=== PATIENT | female | born 1945 | race Caucasian/White ===

== ENCOUNTER 2016-03-24 10:31 | Inpatient (IN) ==
[2016-03-24] MEDS ORDERED: FUROSEMIDE 40 MG/4 ML VIAL ONE (10:44)
[2016-03-24] MEDS ORDERED: MORPHINE 2 MG/1 ML SYRINGE IV STA (10:54)
[2016-03-24] MEDS ORDERED: NITROGLYCERIN 2% OINT 1 INCH/GM PACK TOP STA (10:54)
[2016-03-24] MEDS ORDERED: ASPIRIN 325 MG TABLET PO STA (10:54)
[2016-03-24] MEDS ORDERED: ONDANSETRON 4 MG/2 ML VIAL IV STA (10:54)
[2016-03-24] MEDS ORDERED: ALBUTEROL/IPRATROPIUM 3 ML NEB RESP TX STA (10:54)
[2016-03-24] MEDS ORDERED: FUROSEMIDE 100 MG/10 ML VIAL IV STA (10:54)
[2016-03-24] MEDS ORDERED: methylPREDNISolone SOD SUC 125 MG/2 ML VIAL IV STA (10:54)
[2016-03-24] MEDS ORDERED: NITROGLYCERIN 2% OINT 1 INCH/GM PACK TOP ONE (10:59)
[2016-03-24] MEDS ORDERED: ONDANSETRON 4 MG/2 ML VIAL ONE (10:59)
[2016-03-24] MEDS ORDERED: ASPIRIN 325 MG TABLET ONE (10:59)
[2016-03-24] MEDS ORDERED: MORPHINE 2 MG/1 ML SYRINGE ONE (10:59)
[2016-03-24] MEDS ORDERED: methylPREDNISolone SOD SUC 125 MG/2 ML VIAL ONE (11:00)
[2016-03-24 11:15] LABS: Apearance,Urine Slightly Hazy (Clear); Bacteria,Urine Few /HPF (Few); Bilirubin,Urine Negative (Negative); Blood, Urine Negative (Negative); Glucose,Urine (UA) 50 mg/dL (Negative); Hyaline Casts,Urine 1 /LPF (0-3); Ketones,Urine Negative (Negative); Mucus,Urine Occasional /LPF (Occasional); Nitrite,Urine Negative (Negative); Protein,Urine 100 MG/DL; RBC,Urine 1 /HPF (0-4); Squamous Epithelial Cell,Urine Occasional /HPF (0-10); Urine Color Yellow (Yellow); Urine Specific Gravity 1.015 (1.001-1.035); Urine Urobilinogen < 2.0 EU/DL (0.2-1.0)
[2016-03-24 11:21] LABS: Basophils % 0.5 % (0.0-0.8); Eosinophils # 0.1 10*3/uL (0.0-0.87); Eosinophils % 0.9 % (0.00-10.9); Hematocrit 41.9 VOL% (35.7-47.0); Hemoglobin 12.9 GM/DL (12.0-16.0); Immature Granulocytes % 0.9 %; Immature Granulocytes Absolute 0.07 #; Lymphocytes # 1.3 10*3/uL (1.4-4.0); Lymphocytes % 16.9 % (21.3-54.2); Mean Corpuscular HGB Conc 30.8 GM/DL (32-36); Mean Corpuscular Hemoglobin 29 PG (27-34); Mean Corpuscular Volume 92.7 FL (87-102); Mean Platelet Volume 10.4 FL (9.6-12.0); Monocytes # 0.4 10*3/uL (0.11-0.8); Monocytes % 5.1 % (1.7-12.7); Neutrophils # 5.7 10*3/uL (1.4-7.4); Neutrophils % 75.7 % (38.7-73.9); Platelet Count 195 T/CUMM (130-400); Red Blood Count 4.52 MC/CUMM (3.8-5.5); Red Cell Distribution Width 14.2 % (9.3-17.3); White Blood Count 7.6 T/CUMM (4-12)
[2016-03-24 11:32] LABS: D-Dimer 1.5 MG/L FEU; PT Patient Result 10.7 SECS
[2016-03-24 11:36] LABS: ABG Base Excess 4.1 MMOL/L (-2.5-2.5); ABG HCO3 30.7 MMOL/L (20-26); ABG Oxygen Saturation 99.4 % (95-100); ABG PCO2 54.9 MM HG (35-48); ABG PH 7.365 (7.35-7.45); ABG PO2 437.6 MM HG (80-95); ABG TCO2 32.4 MMOL/L (23-27)
[2016-03-24 11:42] LABS: Alanine Aminotransferase 65 U/L (13-56); Albumin 3.3 G/DL (3.4-5.0); Alkaline Phosphatase 71 U/L (45-117); Aspartate Amino Transferase 52 U/L (0-37); Blood Urea Nitrogen 20 MG/DL (7-18); Calcium 8.8 MG/DL (8.5-10.1); Glucose 262 MG/DL (74-106); Magnesium 1.6 MG/DL (1.8-2.4); Osmolality,Calculated 292.3 MOS/KG (273-304); Potassium 4.9 MMOL/L (3.5-5.1); Sodium 141 MMOL/L (136-145); Total Protein 7.4 G/DL (6.4-8.3); Troponin I Only < 0.015 NG/ML (0.00-0.045)
--- NOTE | 2016-03-24 11:42 | XRay Report ---
XR chest 1V portable Indication: SOB Comparison: Chest x-ray dated December 18, 2013 and rib series dated January 21, 2016 Technique: Single frontal view of the chest Findings: Mild cardiomegaly. Mild interstitial pulmonary prominence is nonspecific but may reflect interstitial pulmonary edema. Osseous and surrounding soft tissue structures appear grossly unchanged. IMPRESSION: As above. PROCEDURE INTERPRETED AT [facility] DEPARTMENT OF RADIOLOGY Final Report Signed by: Dr Pernell Leung
[2016-03-24] MEDS ORDERED: MAGNESIUM SULF RIDER 2 GM in PREMIX 1 EACH IV STA (11:45)
--- NOTE | 2016-03-24 11:49 | Emergency Department Note ---
Cuca Ramires Brittany, am scribing for, and in the presence of, Jesus Gerard MD 11:47. Rajani Ramires Charles R, MD, personally performed the services described in this documentation, ascribed by Claudine Thurman in my presence, and it is both accurate and complete . Arrival - Arrival Chief Complaint: Shortness of Breath Stated Complaint: BP, breathing problem, sick to stomach ED Nursing Triage Note: C/O SOB WITH COUGHING PINK FROTHY SPUTUM WHILE AT MRI CLINIC. NURSE CALLED AND STATED THAT PT DID NOT RECIEVE ANY CONTRAST WHILE AT CT Mode of Arrival: Wheelchair Limitations: No Limitations Source: Patient, Family Time Seen by Provider: 03/24/16 10:52 - History of Present Illness HPI Narrative: This is a 70 y/o female,who presents to the ED with c/o SOB which started minutes [employer]. She states she was being seen at the [facility] clinic for an artery blockage. Her family states pt suddenly became SOB and started to have CP. Her family states pt will not tell someone when she is having the chest pains. Her family states pt has been nauseated when this morning. Pt has had a cough with pinky sputum. Pt denies any CP at this moment in the ED. Pt has no other complaints/pain in the ED at this time. Pt has a PMHx of CHF, HTN, IDDM, and obstructive sleep apnea. Pt denies a surgical Hx. Pt has a family Medical Hx of diabetes and heart disease. Pt denies a social Hx. 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) Consistency: constant Severity: moderate Date of Last Menstrual Period: HYST Allergies/Adverse Reactions: Allergies Allergy/AdvReac Type Severity Reaction Status Date / Time No Known Allergies Allergy Unverified 03/24/16 10:41 Home Medications: Home Medications Medication Instructions Recorded Confirmed Type Albuterol Sulfate [Proair 2 puff INH QID 03/24/16 03/24/16 History Respiclick] Aspirin [Ecotrin] 81 mg PO DAILY 03/24/16 03/24/16 History Citalopram [CeleXA] 20 mg PO DAILY 03/24/16 03/24/16 History Famotidine Tab [Pepcid Tab] 20 mg PO BID 03/24/16 03/24/16 History Glimepiride [Amaryl] 4 mg PO BID W/MEALS 03/24/16 03/24/16 History Hum Insulin NPH/Reg Insulin Hm 30 unit SUBCUT QPM 03/24/16 03/24/16 History [NovoLIN 70/30] Hum Insulin NPH/Reg Insulin Hm 60 unit SUBCUT QAM 03/24/16 03/24/16 History [NovoLIN 70/30] Lisinopril 20 mg PO BID 03/24/16 03/24/16 History Meloxicam [Mobic] 7.5 mg PO DAILY 03/24/16 03/24/16 History Metoprolol Tartrate 25 mg PO BID 03/24/16 03/24/16 History Nitroglycerin Sl Tab [Nitrostat] 0.4 mg SL Q5M PRN 03/24/16 03/24/16 History Verapamil HCl [Verapamil Tab] 120 mg PO BID 03/24/16 03/24/16 History cloNIDine TAB [Catapres Tab] 0.1 mg PO ONCE PRN 03/24/16 03/24/16 History Review of System - Review of System 12 point system: reviewed and no additional remarkable complaints except as stated - Review of System Respiratory: Present: cough (+ of pinky sputum ) Cardiovascular: Present: chest pain, dyspnea on exertion. Absent: palpitations Medical,Surgical,& Family Hx - Medical History Cardio: History of: CHF, Hypertension Endocrine: History of: Diabetes Mellitus (IDDM) Respiratory: History of: Obstructive Sleep Apnea - Family History Family History: Reports;: Family Diabetes, Family Heart Disease - Social History Smoking Status: Never smoker Frequency of Alcohol Use: None Type of Drug Use: None Exam Vital Signs: Vital Signs Temperature 97.5 F L 03/24/16 10:41 Pulse Rate 113 H 03/24/16 10:41 Respiratory Rate 24 03/24/16 11:16 Blood Pressure 200/150 03/24/16 10:41 O2 Sat by Pulse Oximetry 84 L 03/24/16 10:41 - General General appearance: in distress - Head Head exam: Present: atraumatic, normocephalic, normal inspection - Eye Eye exam: Present: normal appearance, PERRL, EOMI - ENT ENT exam: Present: normal exam, normal oropharynx, mucous membranes moist - Neck Neck exam: Present: trachea midline, other (Short neck, per doctor). Absent: tenderness - Chest Chest inspection: Present: normal inspection, symmetric chest wall rise. Absent : tenderness, rash, abscess - Respiratory Respiratory exam: Present: rales (Bilateral Rales), wheezes (Bilateral wheezing) , other (Labored Breathing, D/C breath sounds ) - Cardiovascular Cardiovascular exam: Present: tachycardia - Abdominal Exam Abdominal exam: Present: soft. Absent: distention, tenderness, guarding, rebound, rigidity - Extremities Exam Extremities exam: Present: pedal edema (+2 pedal edema) - Back Exam Back exam: Present: normal inspection, full ROM. Absent: tenderness, muscle spasm, rashes - Neurological Exam Neurological exam: Present: alert, oriented X3, CN II-XII intact, reflexes normal. Absent: motor sensory deficit - Psychiatric Psychiatric exam: Present: normal affect, normal mood. Absent: agitated, anxious - Skin Skin exam: Present: warm, dry, intact, normal color. Absent: diaphoresis Course - Consultations Consultation #1: Hospitalist will admit patient Time: 13:32 Results - Labs CBC & BMP: 03/24/16 11:18 03/24/16 11:18 Lab Results: I have reviewed the patients labs Critical Care Time Critical Care Time: Yes Total Critical Care Time: 60 Disposition Clinical Impression: Congestive heart failure, Hypoxia, Acute dyspnea, Uncontrolled hypertension, JAZMINE (obstructive sleep apnea) Case discussed with: patient, patient's family Disposition: Still a Patient Condition: Guarded Time of Disposition: 13:10
--- NOTE | 2016-03-24 12:08 | EKG Report ---
Stationary ECG Study [facility] ER Test Date: 03/24/2016 10:45:24 AM Pat Name: FRANCESCO DURAN Department: Room: Gender: F Chief Informatics Officer: ROGER Diaz : 1945 Requested by: Jesus Franco Order Number: [id number] Reading MD: FANTA TRUJILLO Intervals [place] Rate: 93 P: 31 TN: 176 QRS: 57 QRSD: 154 T: 77 QT: 407 QTc: 458 Interpretive Statements SINUS RHYTHM WITH OCCASIONAL SUPRAVENTRICULAR PREMATURE COMPLEXES LEFT BUNDLE BRANCH BLOCK Electronically Signed On 03-24-16 22:40:16 MERCHANDISE DIRECTOR by FANTA TRUJILLO [email or web address]
[2016-03-24] MEDS ORDERED: MAGNESIUM SULF RIDER 50 ML IV ONE (12:41)
--- NOTE | 2016-03-24 12:58 | CT Report ---
History: Shortness of breath. Hemoptysis Date: 03/24/2016 Study: CT chest with IV contrast with pulmonary embolus technique Comparison exam: No previous Spiral CT sections were obtained through the lungs following the IV administration of 80 mL of Omnipaque 350 without immediate complication. Multiplanar reconstruction images are also evaluated. Total DLP measures 849.2 mGy*cm. There is no discrete filling defect within the pulmonary arterial tree to suggest acute pulmonary embolic disease, though evaluation of the peripheral arterial tree is limited due to the timing of IV contrast. There is no mediastinal lymphadenopathy or mediastinal mass. There is no thoracic aortic aneurysm or dissection. There is no obvious thyroid mass. There is no pericardial effusion. There is minimal left pleural effusion. There is patchy and hazy airspace disease bilaterally, more so in the perihilar regions, suggesting pulmonary edema. There is moderate thoracic spondylosis. There is no gross acute abnormality of the partially visualized upper abdomen. There is a rounded 9 mm cystic lesion in the subcutaneous tissues of the left chest just inferior medial to the left breast. There is also a similar lesion measuring 14 mm in the left upper abdominal wall. Sebaceous cyst formation is suspected, though correlation with physical exam is recommended. Impression: No evidence to suggest acute pulmonary embolic disease. There is evidence of pulmonary edema, suggesting CHF. Suspected sebaceous cyst formation left chest and left abdomen abdominal wall PROCEDURE INTERPRETED AT [facility] DEPARTMENT OF RADIOLOGY Final Report Signed by: Dr. Rosamaria Mullins
[2016-03-24] MEDS ORDERED: ONDANSETRON 4 MG/2 ML VIAL IV PRN (14:12)
[2016-03-24] MEDS ORDERED: ACETAMINOPHEN 325 MG TABLET PO PRN (14:12)
[2016-03-24] MEDS ORDERED: ALBUTEROL 2.5 MG/3 ML NEB RESP TX PRN (14:12)
[2016-03-24] MEDS ORDERED: LACTULOSE 20 GM/30 ML UDCUP PO PRN (14:12)
[2016-03-24] MEDS ORDERED: MORPHINE 2 MG/1 ML SYRINGE IV PRN (14:12)
[2016-03-24] MEDS ORDERED: GLUCAGON 1 MG VIAL IM PRN (14:36)
[2016-03-24] MEDS ORDERED: DEXTROSE 50% 25 GM/50 ML VIAL IV PRN (14:36)
--- NOTE | 2016-03-24 15:32 | Hospitalist History & Physical ---
<Eleanor Feliz N - Last Filed: 03/24/16 15:28> Assessment and Plan - Time spent with patient Time spent with patient: Greater than 30 minutes (1) Acute dyspnea Status: Acute Current Visit: Yes (2) Congestive heart failure Status: Acute Assessment and plan: Admit to ICU overnight for close monitoring Continue on IV Lasix monitor output CPAP while sleeping and at bedtime repeat ABG in the AM routine labs in AM repeat troponin and ekg in the morning ECHO cardiology consult consult Dr. Pittman for further eval of JAZMINE resume home meds as appropriate hold NSAIDS PRN meds DVT prophylaxis further plan and addendum to follow per Dr. Garibay Current Visit: Yes (3) JAZMINE (obstructive sleep apnea) Status: Acute Current Visit: Yes History of Present Illness Chief complaint: shortness of breath History of present illness: Ms. Fox is a 70 year old female who was at the MRI center this morning for an "artery blockage". She states she was laying flat while in the MRI and she fell asleep. She woke up suddenly acutely short of breath. She states she could not catch her breath and did not feel like she was moving any air. She presented to the ER in acute pulmonary edema. She was given IV Lasix, IV solumedrol, IV MG, nitro paste, and ASA. Also given duoneb and placed on 10L NRB. At the time I saw the pt, she is much improved, she is on 10L NRB and maintaining oxygenation of 100%. She is able to talk with me with only minimal conversational dyspnea. She states she feels much better now. She admits to not feeling well over the last few days and not sleeping much at all lately. She denies chest pain, headache, fever, chills, abdominal pain, n/v/d, dysuria. She has trace edema all over. She tells me that she has JAZMINE but never followed up to get a cpap. She has a PMH of CHF, HTN, DM, and JAZMINE. Pt denies a surgical Hx. Pt has a family Medical Hx of diabetes, stroke and heart disease. Pt denies a social Hx. Home Medications Medication Instructions Recorded Confirmed Type Albuterol Sulfate [Proair 2 puff INH QID 03/24/16 03/24/16 History Respiclick] Aspirin [Ecotrin] 81 mg PO DAILY 03/24/16 03/24/16 History Citalopram [CeleXA] 20 mg PO DAILY 03/24/16 03/24/16 History Famotidine Tab [Pepcid Tab] 20 mg PO BID 03/24/16 03/24/16 History Glimepiride [Amaryl] 4 mg PO BID W/MEALS 03/24/16 03/24/16 History Hum Insulin NPH/Reg Insulin Hm 30 unit SUBCUT QPM 03/24/16 03/24/16 History [NovoLIN 70/30] Hum Insulin NPH/Reg Insulin Hm 60 unit SUBCUT QAM 03/24/16 03/24/16 History [NovoLIN 70/30] Lisinopril 20 mg PO BID 03/24/16 03/24/16 History Meloxicam [Mobic] 7.5 mg PO DAILY 03/24/16 03/24/16 History Metoprolol Tartrate 25 mg PO BID 03/24/16 03/24/16 History Nitroglycerin Sl Tab [Nitrostat] 0.4 mg SL Q5M PRN 03/24/16 03/24/16 History Verapamil HCl [Verapamil Tab] 120 mg PO BID 03/24/16 03/24/16 History cloNIDine TAB [Catapres Tab] 0.1 mg PO ONCE PRN 03/24/16 03/24/16 History Allergies Allergy/AdvReac Type Severity Reaction Status Date / Time No Known Allergies Allergy Unverified 03/24/16 10:41 Medical,Surgical,& Family Hx - Medical History Cardio: History of: CHF, Hypertension Endocrine: History of: Diabetes Mellitus (IDDM) Respiratory: History of: Obstructive Sleep Apnea - Family History Family History: Reports;: Family Diabetes, Family Heart Disease - Social History Smoking Status: Never smoker Frequency of Alcohol Use: None Type of Drug Use: None 12 point system: reviewed and no additional remarkable complaints except as stated Exam - Constitutional Vitals: Period Temp Pulse Resp BP Sys/Chicas Pulse Ox Last 24 Hr 97.5 F 113 24 200/150 General appearance: no acute distress, morbidly obese - Head Head exam: Present: normal inspection, normocephalic - Eye Eye exam: Present: EOMI. Absent: scleral icterus Pupils: Present: BENJIE, normal accommodation - ENT ENT exam: Present: normal exam, normal oropharynx - Neck Neck exam: Present: normal inspection. Absent: lymphadenopathy - Respiratory Respiratory exam: Present: decreased breath sounds, prolonged expiratory phase, wheezes (on expiration), other (coarse bilat, worse in the lateral lobes) - Cardiovascular Cardiovascular exam: Present: regular rate and rhythm. Absent: tachycardia - GI/Abdominal GI/Abdominal exam: Present: normal bowel sounds, soft. Absent: tenderness - Extremities Exam Extremities exam: Present: normal inspection, full ROM. Absent: edema - Back Exam Back exam: Present: normal inspection. Absent: muscle spasm - Neurological Exam Neurological exam: Present: alert, oriented X3 - Psychiatric Psychiatric exam: Present: normal affect, normal mood - Skin Skin exam: Present: normal color, warm, dry Results - Labs CBC & BMP: 03/24/16 11:18 03/24/16 11:18 Lab Results: I have reviewed the past 24 hour labs <Chapo Garibay - Last Filed: 03/24/16 16:42> History of Present Illness History of present illness: I have seen and examined the patient in person and I reviewed the H&P done by colleaguepractitioner and its components and agree with the plan except as noted. Ms. Fox is a 70 year old female brought in from MRI suite after she started to develop shortness of breath during the procedure. Reportedly patient has a history of CHF and hypertension and GA and severe JAZMINE untreated and uncontrolled diabetes mellitus2 and obesity. Patient was on Ventimask and was given IV Lasix they are patient stating her shortness of breath has improved overall. Patient denies chest pain or nausea or vomiting or fever or chills or diarrhea or hemoptysis but does have shortness of breath with exertion and gets easily tired. No palpitation. O/E Gen a&ox3, Neck increased soft tissue around the neck no JVD, lungs intermittent crackles at lung bases bilaterally posteriorly no wheezing, heart distant S1-S2 RRR no murmur appreciated, extremity mild to moderate edema and lower extremity and to less extent in the upper extremity, abdomen soft nontender large habitus, skin warm and dry, HEENT PERRLA and no pharyngeal erythema. A/P as above: - Dyspnea likely multifactorila due possibly to hypertensive urgency, CHF, in setting of untreated reportedly severe JAZMINE and morbid obesity: C.E./ ekg/TTC, IV lasix, I/O, daily wt, U/A, fluid restriction, tele, check procalcitonin ,c/s cardiology as pt has appnt this week in [place] - acute respiratory failure due to above: CT PE protocol negative for PE, BDTx, O2Tx , wean off as tolerated - hypomagnesemia: replace - chronic comorbidities : h/o GA, HTN, DM, obesity, untreated JAZMINE - dvt ppx Exam - Constitutional Vitals: Period Temp Pulse Resp BP Sys/Chicas Pulse Ox Last 24 Hr 97.5 F-98.5 F 80-113 18-24 135-200/70-150 96 Results - Labs CBC & BMP: 03/24/16 11:18 03/24/16 11:18
[2016-03-24] MEDS ORDERED: NITROGLYCERIN SL 0.4 MG TABLET SL PRN (16:10)
[2016-03-24] MEDS ORDERED: cloNIDine 0.1 MG TABLET PO PRN (16:10)
[2016-03-24] MEDS ORDERED: MELATONIN 3 MG TABLET PO PRN (16:49)
[2016-03-24] MEDS ORDERED: LABETALOL 20 MG/4 ML SYRINGE IV PRN (16:50)
[2016-03-24] MEDS ORDERED: hydrALAZINE 20 MG/1 ML VIAL IM PRN (16:53)
--- NOTE | 2016-03-24 18:19 | Cardiology Consult Note ---
I, Parisa Emerson RN, am scribing for, and in the presence of, Miquel Kilpatrick MD 18:15. Assessment and Plan - Time spent with patient Time spent with patient: Greater than 30 minutes (1) Acute dyspnea Status: Acute Assessment and plan: Dramatically better since arrival. She reported having wheezing, and recently started on bronchodilators. BNP is trivially elevated at 138. I do not believe she is in significant heart failure. She does have some wheezing upon auscultation. I believe this is more related to her lung function. Unless something changes clinically overnight, I don't think she requires further cardiac work up at this time. She has an appointment to see her steam table associate, Dr. Iverson on of this week and if she is improved enough to be discharged, she can follow up with him at that time. Current Visit: Yes (2) Hypoxia Status: Acute Assessment and plan: This is improved and on supplemental oxygen she is maintaining oxygen saturation of 99-100%. Current Visit: Yes (3) Uncontrolled hypertension Status: Acute Assessment and plan: Continue home medications. Adjust as needed. Current Visit: Yes (4) History of left bundle branch block (LBBB) Status: Chronic Current Visit: Yes (5) Hx of supraventricular tachycardia Status: Chronic Assessment and plan: She has had several short bursts of PSVT. We will optimize her electrolytes which will probably correct this. We can also adjust her medication if needed. Current Visit: Yes (6) JAZMINE (obstructive sleep apnea) Status: Chronic Assessment and plan: This is currently untreated due to noncompliance with follow up. Current Visit: Yes (7) Hx of coronary artery disease Status: Chronic Assessment and plan: She has mild nonobstructive coronary artery disease on cardiac catheterization. Current Visit: Yes (8) HLD (hyperlipidemia) Status: Chronic Current Visit: Yes (9) Diabetes mellitus Status: Chronic Assessment and plan: Hospital medicine following, continue current plan of care. Current Visit: Yes History of Present Illness - Data of Consult Patient: new to practice (routinely followed by Dr. Iverson at [facility] in [place], [place]) Consult date: 03/24/16 Requesting Physician: Eleanor Feliz Primary care physician: Ever Arechiga - Consult Narrative Reason for consult: CHF History of present illness: Ms. Fox is a 70 year old female who is routinely followed by steam table associate Dr. Iverson at [facility] in [place], [place]. She has seen Dr. Mehta in the remote past. Her primary care provider is Dr. Arechiga. She has a history of mild non-obstructive coronary artery disease, diabetes mellitus, hypertension, hyperlipidemia, mild paroxysmal supraventricular tachycardia, left bundle branch block, obstructive sleep apnea. She has never smoked. She has risk factors significant for: age, obesity, personal history, uncontrolled hypertension, diabetes, hyperlipidemia, sedentary lifestyle, and obesity. She tells me she does not wear a CPAP but was previously seen by sleep medicine and told that for maximum benefit, surgery was recommended. She elected not to undergo surgery or pursue follow up at that time. She also tells me she lost her and granddaughter in a car accident in May of last year. She presents to the emergency room after an episode of shortness of breath while receiving an MRI today. She tells me her blood pressure has been fluctuating recently and Dr. Arechiga had referred her for an MRI for evaluation. She reports she fell asleep in the MRI machine and when she awoke, she began wheezing and became acutely short of breath. When they pulled her out of the MRI , she reports she vomited. She denies any chest discomfort, palpitations, dizziness, diaphoresis, painful inspiration, or syncope. She was treated in the emergency room with lasix and steroids and reports her breathing is improved. She tells me that 1 month ago, she saw Dr. Arechiga for laryngitis and wheezing and states she had an "abnormal x-ray." She was given an inhaler and reports has felt much better for the last several weeks. Blood pressure on admission was 200/150. On supplemental oxygen, her saturations are 99-100%. BNP on admission was 138. Chest CT was negative for pulmonary embolus. Troponin on arrival was negative. Creatinine 0.9, magnesium 1.6, potassium 4.9. She previously underwent left heart catheterization on which showed mild non-obstructive coronary artery disease. Ejection fraction 61% per prior records 01/27/2014. Current Medications Acetaminophen (Tylenol Tab) 325 mg PO Q4H PRN PRN Reason: fever, headache/body aches Albuterol Sulfate (Proventil Neb) 2.5 mg RESP TX RT Q1H PRN PRN Reason: Shortness of Breath/Wheezing Albuterol Sulfate (Proventil Neb) 2.5 mg RESP TX RT QID [facility] Albuterol/Ipratropium (Duoneb) 3 ml RESP TX RT Q6H [facility] Aspirin () 81 mg PO DAILY [facility] Citalopram Hydrobromide (Celexa) 20 mg PO DAILY [facility] Clonidine HCl (Catapres Tab) 0.1 mg PO ONCE PRN PRN Reason: Blood Pressure-Decreased Dextrose/Water (D50) 25 gm IV PRN PRN PRN Reason: Hypoglycemia with IV access Enoxaparin Sodium (Lovenox) 40 mg SUBCUT Q24H [facility] Furosemide (Lasix Inj) 40 mg IV BID DIURETIC [facility] Glucagon () 1 mg IM PRN PRN PRN Reason: Hypoglycemia w/o IV access Hydralazine HCl (Apresoline Inj) 10 mg IM Q6H PRN PRN Reason: Blood Pressure-Increased Insulin Human Lispro (Humalog) 0 unit SUBCUT ACHS [facility] PRN Reason: Protocol Insulin Isophane/Insulin Regular (Humulin 70/30) 60 unit SUBCUT QAM [facility] Insulin Isophane/Insulin Regular (Humulin 70/30) 30 unit SUBCUT QPM [facility] Labetalol HCl (Trandate Inj) 20 mg IV Q3HR PRN PRN Reason: Blood Pressure-Increased Lactulose (Chronulac) 20 gm PO Q4H PRN PRN Reason: Constipation Lisinopril (Prinivil) 20 mg PO BID [facility] Melatonin () 3 mg PO BEDTIME PRN PRN Reason: Insomnia Metoprolol Tartrate (Lopressor Tab) 25 mg PO BID [facility] Morphine Sulfate () 2 mg IV Q4H PRN PRN Reason: Pain Severe (8-10) Nitroglycerin (Nitrostat) 0.4 mg SL Q5M PRN PRN Reason: Chest Pain Ondansetron HCl (Zofran Inj) 4 mg IV Q4H PRN PRN Reason: Nausea Pantoprazole Sodium (Protonix Inj) 40 mg IV Q24H [facility] Verapamil HCl (Calan Tab) 120 mg PO BID [facility] CC: Chapo Garibay - Home Medications and Allergies Home Medications: Home Medications Medication Instructions Recorded Confirmed Type Albuterol Sulfate [Proair 2 puff INH QID 03/24/16 03/24/16 History Respiclick] Aspirin [Ecotrin] 81 mg PO DAILY 03/24/16 03/24/16 History Citalopram [CeleXA] 20 mg PO DAILY 03/24/16 03/24/16 History Famotidine Tab [Pepcid Tab] 20 mg PO BID 03/24/16 03/24/16 History Glimepiride [Amaryl] 4 mg PO BID W/MEALS 03/24/16 03/24/16 History Hum Insulin NPH/Reg Insulin Hm 30 unit SUBCUT QPM 03/24/16 03/24/16 History [NovoLIN 70/30] Hum Insulin NPH/Reg Insulin Hm 60 unit SUBCUT QAM 03/24/16 03/24/16 History [NovoLIN 70/30] Meloxicam [Mobic] 7.5 mg PO DAILY 03/24/16 03/24/16 History Nitroglycerin Sl Tab [Nitrostat] 0.4 mg SL Q5M PRN 03/24/16 03/24/16 History RX: Lisinopril 20 mg PO BID 03/24/16 03/24/16 History RX: Metoprolol Tartrate 25 mg PO BID 03/24/16 03/24/16 History Verapamil HCl [Verapamil Tab] 120 mg PO BID 03/24/16 03/24/16 History cloNIDine TAB [Catapres Tab] 0.1 mg PO ONCE PRN 03/24/16 03/24/16 History Allergies/Adverse Reactions: Allergies Allergy/AdvReac Type Severity Reaction Status Date / Time No Known Allergies Allergy Unverified 03/24/16 10:41 - Constitutional Constitutional: Absent: anorexia, chills, daytime sleepiness, excessive sweating , fatigue, fever(s), frequent falls, headache(s), increased appetite, lethargy, malaise, night sweats, weakness, weight gain, weight loss - EENT Eyes: Absent: blurry vision, diplopia, loss of vision Ears: Absent: decreased hearing, ear discharge, ear pain Nose, mouth and throat: Absent: dysphagia, epistaxis, headache(s), hoarseness, lip swelling, nasal congestion, neck mass, neck pain, sinus pressure, sore throat, throat swelling, tongue swelling, vertigo - Cardiovascular Cardiovascular: Present: as per HPI, chest pain at rest (when blood pressure is elevated), dyspnea, dyspnea on exertion, edema, lightheadedness, orthopnea. Absent: chest pain with activity, claudication, diaphoresis, radiating jaw, neck or arm pain, palpitations, PND - Respiratory Respiratory: Present: as per HPI, dyspnea, dyspnea on exertion, wheezing, snoring, other. Absent: cough, hemoptysis, pain on inspiration - Gastrointestinal Gastrointestinal: Present: as per HPI. Absent: abdominal pain, change in bowel habits, constipation, cramping, diarrhea, dysphagia, heartburn, hematemesis, hematochezia, loose stools, melena, nausea, vomiting - Genitourinary Genitourinary: Absent: difficulty urinating, dysuria, flank pain, hematuria, urinary frequency, urinary hesitancy - Musculoskeletal Musculoskeletal: Absent: arthralgias, back pain, joint swelling, limited range of motion, muscle cramps, muscle weakness, myalgias - Neurological Neurological: Absent: abnormal gait, abnormal speech, behavioral changes, confusion, convulsions, disequilibrium, dizziness, focal weakness, frequent falls, headache(s), memory loss, numbness, paresthesias, radicular pain, syncope , tremor(s) - Psychiatric Psychiatric: Absent: anxiety, confusion, depression, memory loss, panic attacks - Endocrine Endocrine: Absent: cold intolerance, fatigue, heat intolerance, polydipsia, polyphagia - Hematologic/Lymphatic Hematologic/Lymphatic: Absent: easy bleeding, easy bruising, lymphadenopathy Medical,Surgical,& Family Hx - Medical History Cardio: History of: CHF, CAD, Hypertension, NC Endocrine: History of: Diabetes Mellitus (IDDM) Respiratory: History of: Obstructive Sleep Apnea Genitourinary: History of: Recurring Urinary Tract Infections Gastrointestinal: History of: Diverticulitis/ Diverticulosis, GI Problems ( chronic constipation) Musculoskeletal: History of: Musculoskeletal Problems - Surgical History Cardiac Surgeries: Sugical HX of: Cardiac Catheterization Neurologic Surgeries: Patient denies: Neurologic Surgery Abdominal Surgeries: Surgical HX of: Hernia Repair - Family History Family History: Reports;: Family Diabetes, Family Heart Disease - Social History Smoking Status: Never smoker Frequency of Alcohol Use: None Type of Drug Use: None Physical Examination Vital Signs Temp Pulse Resp BP Pulse Ox 97.5 F L 113 H 24 200/150 84 L 03/24/16 10:41 03/24/16 10:41 03/24/16 10:41 03/24/16 10:41 03/24/16 10:41 General: Present: Other (mild distress with mild conversational dyspnea, on non- rebreather) HEENT: Present: Normocephaly, Mucus Membranes Moist Neck: Present: Supple Neck, Midline Trachea, No Masses, No Bruit Cardiac: Present: Reg Rate and Rhythm, No Murmur Lungs: Present: Wheezes (bilateral ), Other (bibasilar crackles, more prominent in the left lower base) Neuro: Present: Grossly Intact. Absent: Resting Tremor, Essential Tremor Abdomen: Present: Soft, Active Bowel Sounds, No Masses, Non-Tender Skin: Present: Clear. Absent: Rash Musculoskeletal: Present: No Fluid Collection, No Pain, Normal Range of Motion Extremities: Present: No Clubbing, No Cyanosis, Normal Upper Extr. Pulses, Normal Lower Extr. Pulses, +2 Edema (to BLE) Result/EKG - Labs CBC & BMP: 03/24/16 11:18 03/24/16 11:18 Lab Results: I have reviewed the past 24 hour labs Labs: Laboratory Results - last 24 hr 03/24/16 03/24/16 17:17 17:25 POC Glucose 242 H Magnesium 2.2 - EKG EKG results: interpreted by me I, Miquel Kilpatrick MD, personally performed the services described in this documentation, ascribed by Parisa Emerson RN in my presence, and it is both accurate and complete .
[2016-03-24] MEDS: ALBUTEROL/IPRATROPIUM 3 ML NEB RESP TX SCH (18:31)
[2016-03-24] MEDS: INSULIN LISPRO 100 UNIT/ML SUBCUT SCH ×2 (20:01→20:30)
[2016-03-24] MEDS: INSULIN NPH/REGULAR 70/30 100 UNIT/ML SUBCUT SCH (20:01)
[2016-03-24] MEDS: PANTOPRAZOLE 40 MG VIAL IV SCH (20:01)
[2016-03-24] MEDS: FUROSEMIDE 40 MG/4 ML VIAL IV SCH (20:01)
[2016-03-24] MEDS: ENOXAPARIN 40 MG/0.4 ML SYRINGE SUBCUT SCH (20:01)
[2016-03-24] MEDS: LISINOPRIL 20 MG TABLET PO SCH (20:31)
[2016-03-24] MEDS: METOPROLOL TARTRATE 25 MG TABLET PO SCH (20:31)
[2016-03-24] MEDS: VERAPAMIL 120 MG TABLET PO SCH (20:35)
[2016-03-24] MEDS: ALBUTEROL 2.5 MG/3 ML NEB RESP TX SCH (22:46)
[2016-03-25] MEDS: ALBUTEROL/IPRATROPIUM 3 ML NEB RESP TX SCH ×4 (01:04→20:34)
[2016-03-25 04:47] LABS: ABG HCO3 33.3 MMOL/L (20-26); ABG Oxygen Saturation 98.5 % (95-100); ABG PCO2 49.7 MM HG (35-48); ABG PH 7.444 (7.35-7.45); ABG PO2 147.2 MM HG (80-95); ABG TCO2 34.8 MMOL/L (23-27); Pt O2 Delivery Device BIPAP
[2016-03-25 04:59] LABS: Basophils % 0.1 % (0.0-0.8); Hematocrit 36.6 VOL% (35.7-47.0); Hemoglobin 11.6 GM/DL (12.0-16.0); Immature Granulocytes % 0.4 %; Immature Granulocytes Absolute 0.03 #; Lymphocytes # 0.7 10*3/uL (1.4-4.0); Lymphocytes % 9.4 % (21.3-54.2); Mean Corpuscular HGB Conc 31.7 GM/DL (32-36); Mean Corpuscular Hemoglobin 28 PG (27-34); Mean Corpuscular Volume 89.1 FL (87-102); Mean Platelet Volume 10.7 FL (9.6-12.0); Monocytes # 0.2 10*3/uL (0.11-0.8); Monocytes % 2.7 % (1.7-12.7); Neutrophils # 6.5 10*3/uL (1.4-7.4); Neutrophils % 87.4 % (38.7-73.9); Platelet Count 207 T/CUMM (130-400); Red Blood Count 4.11 MC/CUMM (3.8-5.5); Red Cell Distribution Width 14.1 % (9.3-17.3); White Blood Count 7.5 T/CUMM (4-12)
[2016-03-25 05:57] LABS: Alanine Aminotransferase 51 U/L (13-56); Alkaline Phosphatase 60 U/L (45-117); Aspartate Amino Transferase 26 U/L (0-37); Bilirubin,Total < 0.39 MG/DL (0.2-1.0); Blood Urea Nitrogen 27 MG/DL (7-18); Glucose 269 MG/DL (74-106); Osmolality,Calculated 292.4 MOS/KG (273-304); Potassium 4.6 MMOL/L (3.5-5.1); Sodium 140 MMOL/L (136-145); Total Protein 6.8 G/DL (6.4-8.3)
[2016-03-25] MEDS: ALBUTEROL 2.5 MG/3 ML NEB RESP TX SCH ×4 (07:48→21:24)
--- NOTE | 2016-03-25 07:53 | EKG Report ---
Stationary ECG Study [facility] Test Date: 03/25/2016 7:52:27 AM Pat Name: FRANCESCO DURAN Department: Room: 115 Gender: F Auto Technician: JN : 1945 Requested by: Eleanor Feliz Order Number: [id number] Reading MD: FANTA TRUJILLO Intervals [place] Rate: 69 P: 35 CA: 139 QRS: 97 QRSD: 166 T: -40 QT: 476 QTc: 494 Interpretive Statements SINUS RHYTHM BORDERLINE RIGHT AXIS DEVIATION LEFT BUNDLE BRANCH BLOCK Electronically Signed On 03-25-16 08:08:57 SCALER by FANTA TRUJILLO [email or web address]
[2016-03-25] MEDS: LISINOPRIL 20 MG TABLET PO SCH ×2 (08:10→21:02)
[2016-03-25] MEDS: FUROSEMIDE 40 MG/4 ML VIAL IV SCH ×2 (08:10→16:37)
[2016-03-25] MEDS: ASPIRIN EC 81 MG TABLET PO SCH (08:10)
[2016-03-25] MEDS: INSULIN NPH/REGULAR 70/30 100 UNIT/ML SUBCUT SCH ×2 (08:11→21:02)
[2016-03-25] MEDS: METOPROLOL TARTRATE 25 MG TABLET PO SCH ×2 (08:11→21:02)
[2016-03-25] MEDS: VERAPAMIL 120 MG TABLET PO SCH ×2 (08:11→21:03)
[2016-03-25] MEDS: CITALOPRAM 20 MG TABLET PO SCH (08:11)
[2016-03-25] MEDS: INSULIN LISPRO 100 UNIT/ML SUBCUT SCH ×4 (08:11→21:03)
--- NOTE | 2016-03-25 09:02 | Hospitalist Progress Note ---
Assessment and Plan (1) Acute dyspnea Status: Acute Assessment and plan: Her dyspnea has now resolved it was likely related to acute flash pulmonary edema. She did respond very well to Lasix and bronchodilators. On exam clinically she is clear. Cardiology did see patient in fill that no further cardiac workup is warranted. Because of her underlying sleep apnea sleep medicine has been consulted during this hospitalization. Current Visit: Yes (2) Uncontrolled hypertension Status: Acute Assessment and plan: Her blood pressures been well controlled since hospitalizations. We'll review her medications that she is on now and likely will have to go home on them. Current Visit: Yes (3) JAZMINE (obstructive sleep apnea) Status: Chronic Assessment and plan: Is diagnosed years ago and recommended surgery at that time in which she refused. Sleep medicine has been consulted while await their consultation. Now she can be transferred out of the intensive care unit. Hopefully, after seen by sleep medicine she can likely be discharged. Current Visit: Yes (4) Diabetes mellitus Status: Chronic Current Visit: Yes Hospitalist: Subjective Interval history: 70-year-old female with history of hypertension obesity and obstructive sleep apnea who was diagnosed years ago and recommended surgery and at the time refused presented yesterday afternoon with acute dyspnea. Chest x-ray and CT revealed some pulmonary edema. She has responded well with bronchodilators and IV Lasix. This morning she is feeling much better. Cardiology did see patient and did not feel any further cardiac workup was warranted. Exam - Constitutional Vitals: Period Temp Pulse Resp BP Sys/Chicas Pulse Ox Last 24 Hr 97.4 F-98.9 F 65-113 12-24 107-200/56-150 91-98 General appearance: over weight - Head Head exam: Present: normocephalic, atraumatic - Eye Eye exam: Present: EOMI Pupils: Present: BENJIE - Neck Neck exam: Present: normal inspection - Respiratory Respiratory exam: Present: clear to auscultation bilaterally - Cardiovascular Cardiovascular exam: Present: regular rate and rhythm - GI/Abdominal GI/Abdominal exam: Present: normal bowel sounds, soft - Extremities Exam Extremities exam: Present: full ROM - Neurological Exam Neurological exam: Present: alert, oriented X3, CN II-XII intact - Psychiatric Psychiatric exam: Present: normal mood - Skin Skin exam: Present: warm, intact Results - Labs CBC & BMP: 03/25/16 04:31 03/25/16 04:31
--- NOTE | 2016-03-25 11:36 | Cardiology Progress Note ---
Assessment and Plan (1) Acute dyspnea Status: Acute Assessment and plan: Dramatically better since arrival. She reported having wheezing, and recently started on bronchodilators. Her cardiac enzymes are negative 3 sets and her BNP is trivially elevated at 138. I do not believe she is in significant heart failure. She does have some wheezing upon auscultation. I believe this is more related to her lung function. I don't think any additional cardiac workup is required at this time. She has an appointment to see her leather cartridge belt maker, Dr. Iverson on of this week. From my point of view she can be discharged home. Please call me if further assistance. Current Visit: Yes (2) Hypoxia Status: Acute Assessment and plan: The hypoxia has resolved. She is being workup for her sleep apnea. Current Visit: Yes (3) Uncontrolled hypertension Status: Acute Assessment and plan: Her blood pressures have been well-controlled in the hospital. Current Visit: Yes (4) History of left bundle branch block (LBBB) Status: Chronic Current Visit: Yes (5) Hx of supraventricular tachycardia Status: Chronic Assessment and plan: She had several short bursts of PSVT, but these have stabilized. She has not had any sustained arrhythmia. Current Visit: Yes (6) JAZMINE (obstructive sleep apnea) Status: Chronic Assessment and plan: Repeat evaluation is underway. Current Visit: Yes (7) Hx of coronary artery disease Status: Chronic Assessment and plan: She has mild nonobstructive coronary artery disease on cardiac catheterization. Current Visit: Yes (8) HLD (hyperlipidemia) Status: Chronic Current Visit: Yes (9) Diabetes mellitus Status: Chronic Assessment and plan: Hospital medicine following, continue current plan of care. Current Visit: Yes Cardiology - PN: Subj Interval history: The patient is feeling well today. She denies any cardiac symptoms like angina , palpitations, or syncope. Her breathing is back to baseline. The patient's cardiac enzymes were all negative. Her BNP was 138. Her symptoms have resolved with bronchodilators and diuretics. From my standpoint, she can be discharged home at any time. She has a scheduled follow-up with her leather cartridge belt maker on . I think she can follow-up with him going forward. Current Medications Acetaminophen (Tylenol Tab) 325 mg PO Q4H PRN PRN Reason: fever, headache/body aches Albuterol Sulfate (Proventil Neb) 2.5 mg RESP TX RT Q1H PRN PRN Reason: Shortness of Breath/Wheezing Albuterol Sulfate (Proventil Neb) 2.5 mg RESP TX RT QID [facility] Last Admin: 03/24/16 22:46 Dose: Not Given Albuterol/Ipratropium (Duoneb) 3 ml RESP TX RT Q6H [facility] Last Admin: 03/25/16 07:48 Dose: 3 ml Aspirin () 81 mg PO DAILY [facility] Last Admin: 03/25/16 08:10 Dose: 81 mg Citalopram Hydrobromide (Celexa) 20 mg PO DAILY [facility] Last Admin: 03/25/16 08:11 Dose: 20 mg Clonidine HCl (Catapres Tab) 0.1 mg PO ONCE PRN PRN Reason: Blood Pressure-Decreased Dextrose/Water (D50) 25 gm IV PRN PRN PRN Reason: Hypoglycemia with IV access Enoxaparin Sodium (Lovenox) 40 mg SUBCUT Q24H [facility] Last Admin: 03/24/16 20:01 Dose: 40 mg Furosemide (Lasix Inj) 40 mg IV BID DIURETIC [facility] Last Admin: 03/25/16 08:10 Dose: 40 mg Glucagon () 1 mg IM PRN PRN PRN Reason: Hypoglycemia w/o IV access Hydralazine HCl (Apresoline Inj) 10 mg IM Q6H PRN PRN Reason: Blood Pressure-Increased Insulin Human Lispro (Humalog) 0 unit SUBCUT ACHS [facility] PRN Reason: Protocol Last Admin: 03/25/16 08:11 Dose: 9 unit Insulin Isophane/Insulin Regular (Humulin 70/30) 60 unit SUBCUT QAM [facility] Last Admin: 03/25/16 08:11 Dose: 60 unit Insulin Isophane/Insulin Regular (Humulin 70/30) 30 unit SUBCUT QPM [facility] Last Admin: 03/24/16 20:01 Dose: 30 unit Labetalol HCl (Trandate Inj) 20 mg IV Q3HR PRN PRN Reason: Blood Pressure-Increased Lactulose (Chronulac) 20 gm PO Q4H PRN PRN Reason: Constipation Lisinopril (Prinivil) 20 mg PO BID [facility] Last Admin: 03/25/16 08:10 Dose: 20 mg Melatonin () 3 mg PO BEDTIME PRN PRN Reason: Insomnia Metoprolol Tartrate (Lopressor Tab) 25 mg PO BID [facility] Last Admin: 03/25/16 08:11 Dose: 25 mg Morphine Sulfate () 2 mg IV Q4H PRN PRN Reason: Pain Severe (8-10) Nitroglycerin (Nitrostat) 0.4 mg SL Q5M PRN PRN Reason: Chest Pain Ondansetron HCl (Zofran Inj) 4 mg IV Q4H PRN PRN Reason: Nausea Pantoprazole Sodium (Protonix Inj) 40 mg IV Q24H [facility] Last Admin: 03/24/16 20:01 Dose: 40 mg Verapamil HCl (Calan Tab) 120 mg PO BID [facility] Last Admin: 03/25/16 08:11 Dose: 120 mg Exam (Progress Note) - Constitutional Vitals: Period Temp Pulse Resp BP Sys/Chicas Pulse Ox Last 24 Hr 97.4 F-98.9 F 65-113 12-24 107-200/56-150 91-98 Exam: General: Appears well developed, well nourished, obese no apparent distress HEENT: Normocephalic, atraumatic Neck: Supple Neck, Midline Trachea, No Bruit, No JVD Cardiac: Reg Rate and Rhythm, 2 out of 6 Murmur, no gallop, no rub Lungs: Clear to auscultation, No Wheeze, Rales, Rhonchi Neuro: Cranial Nerve 2-12 Intact, Motor Function Grossly Intact Abdomen: Soft, Active Bowel Sounds, No Masses, No Pulsations/Bruits Skin: Normal color, no rash Extremities: No Clubbing, No Cyanosis, No Edema, Normal Upper Extr. Pulses Musculoskeletal: No acute abnormality noted Psychiatric: The patient does not appear to be anxious or depressed Result/EKG - Labs CBC & BMP: 03/25/16 04:31 03/25/16 04:31 Lab Results: I have reviewed the past 24 hour labs Labs: Laboratory Results - last 24 hr 03/24/16 03/24/16 03/24/16 17:17 17:25 20:23 WBC RBC Hgb Hct MCV MCH MCHC RDW Plt Count MPV Neut % (Auto) Lymph % (Auto) [place] % (Auto) Eos % (Auto) Baso % (Auto) Neut # (Auto) Lymph # (Auto) [place] # (Auto) Eos # (Auto) Baso # (Auto) Immature Gran % Nucleated RBC % Immature Gran # Nucleated RBCs # ABG pH ABG pCO2 ABG pO2 ABG HCO3 ABG Total CO2 ABG O2 Saturation ABG Base Excess FiO2 Sodium Potassium Chloride Carbon Dioxide Anion Gap BUN Creatinine GFR Calculation BUN/Creatinine Ratio Glucose POC Glucose 242 H 357 H Calculated Osmolality Calcium Magnesium 2.2 Total Bilirubin AST ALT Alkaline Phosphatase Troponin I Total Protein Albumin Globulin Albumin/Globulin Ratio 03/24/16 03/25/16 03/25/16 21:44 04:31 04:31 WBC 7.5 RBC 4.11 Hgb 11.6 L Hct 36.6 MCV 89.1 MCH 28 MCHC 31.7 L RDW 14.1 Plt Count 207 MPV 10.7 Neut % (Auto) 87.4 H Lymph % (Auto) 9.4 L [place] % (Auto) 2.7 Eos % (Auto) 0.0 Baso % (Auto) 0.1 Neut # (Auto) 6.5 Lymph # (Auto) 0.7 L [place] # (Auto) 0.2 Eos # (Auto) 0.0 Baso # (Auto) 0.0 Immature Gran % 0.4 Nucleated RBC % 0.0 Immature Gran # 0.03 Nucleated RBCs # 0.00 ABG pH ABG pCO2 ABG pO2 ABG HCO3 ABG Total CO2 ABG O2 Saturation ABG Base Excess FiO2 Sodium 140 Potassium 4.6 Chloride 99 Carbon Dioxide 30 Anion Gap 15.6 H BUN 27 H Creatinine 0.90 GFR Calculation 79 BUN/Creatinine Ratio 30.00 H Glucose 269 H POC Glucose Calculated Osmolality 292.4 Calcium 9.0 Magnesium Total Bilirubin < 0.39 AST 26 ALT 51 Alkaline Phosphatase 60 Troponin I < 0.015 Total Protein 6.8 Albumin 3.0 L Globulin 3.8 H Albumin/Globulin Ratio 0.7 L 03/25/16 03/25/16 04:40 07:24 WBC RBC Hgb Hct MCV MCH MCHC RDW Plt Count MPV Neut % (Auto) Lymph % (Auto) [place] % (Auto) Eos % (Auto) Baso % (Auto) Neut # (Auto) Lymph # (Auto) [place] # (Auto) Eos # (Auto) Baso # (Auto) Immature Gran % Nucleated RBC % Immature Gran # Nucleated RBCs # ABG pH 7.444 ABG pCO2 49.7 H ABG pO2 147.2 H ABG HCO3 33.3 H ABG Total CO2 34.8 H ABG O2 Saturation 98.5 ABG Base Excess 8.0 H FiO2 44.00 Sodium Potassium Chloride Carbon Dioxide Anion Gap BUN Creatinine GFR Calculation BUN/Creatinine Ratio Glucose POC Glucose Calculated Osmolality Calcium Magnesium Total Bilirubin AST ALT Alkaline Phosphatase Troponin I < 0.015 Total Protein Albumin Globulin Albumin/Globulin Ratio - EKG EKG results: interpreted by me
[2016-03-25] MEDS: ENOXAPARIN 40 MG/0.4 ML SYRINGE SUBCUT SCH (14:52)
[2016-03-25] MEDS: PANTOPRAZOLE 40 MG VIAL IV SCH (14:52)
--- NOTE | 2016-03-25 15:28 | Sleep Medicine Consult ---
Assessment and Plan (1) JAZMINE (obstructive sleep apnea) Status: Chronic Assessment and plan: This patient has a history of very mild obstructive sleep apnea but has not been treated. I suspect that her obstructive sleep apnea is much worse now after weight gain and with the severity of her symptoms and her comorbidities. We will see if we can get her fitted with an auto titration CPAP tonight if available. She will need to be back in the sleep lab for reevaluation after discharge. We hope to not lose her to follow-up this time. Current Visit: Yes (2) Congestive heart failure Status: Acute Assessment and plan: Untreated obstructive sleep apnea certainly could be an exacerbating factor to CHF, either related to systolic or diastolic dysfunction. Compliance with CPAP therapy has been shown in the CHF patient to reduce readmission rates. CPAP therapy is also been shown in 3 studies to improve ejection fraction in patients with systolic dysfunction and JAZMINE. Current Visit: Yes (3) Uncontrolled hypertension Status: Acute Assessment and plan: The prevalence rate for obstructive sleep apnea patients with hypertension is 35 %. That rate can be as high as 80% in patients who require 4 or more medications for blood pressure control. Current Visit: Yes (4) Diabetes mellitus Status: Chronic Assessment and plan: The prevalence rate for obstructive sleep apnea in patients with type 2 diabetes can be as high as 86%. Those patients with moderate to severe obstructive sleep apnea are at a greater risk for diabetic nephropathy and neuropathy. Compliance with CPAP therapy for these patients can lead to improvement in glycemic control and improvement in insulin sensitivity. Current Visit: Yes History of Present Illness Chief complaint: sleep apnea History of present illness: Ms. Fox is a 70 year old female admitted with shortness of breath. He has a remote history of obstructive sleep apnea diagnosed in 2000 with an AHI of 9.1. She apparently never return for follow-up of treatment options. Since that time, she thinks that she has gained about 50 pounds. She snores worse and does have abnormal breathing during sleep. She is awakening from sleep short of breath and has an [place] sleepiness score of 19. She has significant chronic health issues that include hypertension and diabetes. Home Medications Medication Instructions Recorded Confirmed Type Albuterol Sulfate [Proair 2 puff INH QID 03/24/16 03/24/16 History Respiclick] Aspirin [Ecotrin] 81 mg PO DAILY 03/24/16 03/24/16 History Citalopram [CeleXA] 20 mg PO DAILY 03/24/16 03/24/16 History Famotidine Tab [Pepcid Tab] 20 mg PO BID 03/24/16 03/24/16 History Glimepiride [Amaryl] 4 mg PO BID W/MEALS 03/24/16 03/24/16 History Hum Insulin NPH/Reg Insulin Hm 30 unit SUBCUT QPM 03/24/16 03/24/16 History [NovoLIN 70/30] Hum Insulin NPH/Reg Insulin Hm 60 unit SUBCUT QAM 03/24/16 03/24/16 History [NovoLIN 70/30] Lisinopril 20 mg PO BID 03/24/16 03/24/16 History Meloxicam [Mobic] 7.5 mg PO DAILY 03/24/16 03/24/16 History Metoprolol Tartrate 25 mg PO BID 03/24/16 03/24/16 History Nitroglycerin Sl Tab [Nitrostat] 0.4 mg SL Q5M PRN 03/24/16 03/24/16 History Verapamil HCl [Verapamil Tab] 120 mg PO BID 03/24/16 03/24/16 History cloNIDine TAB [Catapres Tab] 0.1 mg PO ONCE PRN 03/24/16 03/24/16 History Allergies Allergy/AdvReac Type Severity Reaction Status Date / Time No Known Allergies Allergy Unverified 03/24/16 10:41 Review of systems: Notable for daytime fatigue and sleepiness, nocturia, and lower extremity swelling. Exam (Pulmonay) H&P - Constitutional Vitals: Period Temp Pulse Resp BP Sys/Chicas Pulse Ox Last 24 Hr 97.4 F-98.9 F 65-103 12-23 107-160/56-78 91-99 Exam: She is alert and responsive in no acute distress. Pupils equal round reactive to light and accommodation. Extraocular movements intact. Oropharynx with class IV Mallampati exam. Neck is supple without adenopathy or thyromegaly. She has a 22 inch neck circumference. No supraclavicular adenopathy is noted. Chest with symmetrical breath sounds without focal wheezes, rhonchi, or rales. Cardiac exam reveals a regular rhythm without murmur or gallop. Abdomen obese nontender without palpable hepatosplenomegaly or mass. Extremities are without clubbing cyanosis or edema. Neurologically, she is grossly intact. She moves all extremities with good strength and answers questions appropriately. Medical,Surgical,& Family Hx - Medical History Cardio: History of: CHF, CAD, Hypertension, SD Endocrine: History of: Diabetes Mellitus (IDDM) Respiratory: History of: Obstructive Sleep Apnea Genitourinary: History of: Recurring Urinary Tract Infections Gastrointestinal: History of: Diverticulitis/ Diverticulosis, GI Problems ( chronic constipation) Musculoskeletal: History of: Musculoskeletal Problems - Surgical History Cardiac Surgeries: Sugical HX of: Cardiac Catheterization Neurologic Surgeries: Patient denies: Neurologic Surgery Abdominal Surgeries: Surgical HX of: Hernia Repair - Family History Family History: Reports;: Family Diabetes, Family Heart Disease - Social History Smoking Status: Never smoker Frequency of Alcohol Use: None Type of Drug Use: None Results - Labs CBC & BMP: 03/25/16 04:31 03/25/16 04:31 Lab Results: I have reviewed the past 24 hour labs
[2016-03-26] MEDS: ALBUTEROL/IPRATROPIUM 3 ML NEB RESP TX SCH ×3 (00:36→12:15)
[2016-03-26] MEDS: ALBUTEROL 2.5 MG/3 ML NEB RESP TX SCH ×3 (08:05→12:23)
--- NOTE | 2016-03-26 08:07 | ECHO Report ---
Manuela Fox Exam Date: 03/25/2016 10:02 Referring Physician: Technologist: Valerie Caraballo RDCS Age: 70 Ht (in): Wt (lb): Gender: F Exam Location: [facility] Echo Indications: Essential (primary) hypertension, Shortness of breath, Chest pain, unspecified, Left bundle-branch block, unspecified, JAZMINE, IDDM, Nausea, Hyperlipidemia, unspecified BP: / HR: Rhythm: Sinus Technical Quality: Technically difficult study IMPRESSIONS Technically difficult study Left ventricular ejection fraction is estimated at 45-50 %. Mild concentric left ventricular hypertrophy. The left atrium is mildly enlarged. Trace to mild mitral valve regurgitation. Trace to mild tricuspid valve regurgitation. MEASUREMENTS (Male / Female) Normal Values 2D ECHO LV Diastolic Diameter PLAX 5.0 cm 4.2 - 5.9 / 3.9 - 5.3 cm LV Systolic Diameter PLAX 3.9 cm LV Fractional Shortening PLAX 22.6 % IVS Diastolic Thickness 1.5 cm 0.6 - 1.0 / 0.6 - 0.9 cm LVPW Diastolic Thickness 1.5 cm 0.6 - 1.0 / 0.6 - 0.9 cm RV Internal Dim ED PLAX 3.1 cm Aortic Root Diameter 2.8 cm LA Systolic Diameter LX 4.8 cm 3.0 - 4.0 / 2.7 - 3.8 cm DOPPLER TR Peak Velocity 299.0 cm/s TR Peak Gradient 35.8 mmHg FINDINGS Left Ventricle Normal left ventricular cavity size. Mild concentric left ventricular hypertrophy. Left ventricular ejection fraction is estimated at 45-50 %. Right Ventricle The right ventricle is normal in size and function. Right Atrium The right atrium is normal in size. Left Atrium The left atrium is mildly enlarged. Mitral Valve Morphologically normal mitral valve. Trace to mild mitral valve regurgitation. Aortic Valve Morphologically normal aortic valve without significant sclerosis or stenosis. There is no aortic regurgitation. Tricuspid Valve Morphologically normal tricuspid valve. Trace to mild tricuspid valve regurgitation. Tricuspid regurgitation velocities suggest a PAP of 46 mmHg. Pulmonic Valve Morphologically normal pulmonic valve without significant stenosis. There is no pulmonic regurgitation. Pericardium Normal pericardium without effusion. Aorta Normal ascending aorta dimension. Miquel Kilpatrick (Electronically Signed) Final Date: 25 March 2016 19:29
--- NOTE | 2016-03-26 08:51 | XRay Report ---
XR chest 1V portable Indication: Pulmonary edema Comparison: 24 March 2016 Findings: The heart and mediastinum are stable in size and configuration. The pulmonary vascularity is improved with decreasing interstitial lung density. No other lung infiltrates, effusions, pneumothorax or other abnormality is demonstrated. Impression: Findings suggest improving cardiac decompensation. PROCEDURE INTERPRETED AT [facility] DEPARTMENT OF RADIOLOGY Final Report Signed by: Dr. Rojas Scruggs
[2016-03-26] MEDS: CITALOPRAM 20 MG TABLET PO SCH (09:20)
[2016-03-26] MEDS: ASPIRIN EC 81 MG TABLET PO SCH (09:20)
[2016-03-26] MEDS: FUROSEMIDE 40 MG/4 ML VIAL IV SCH (09:20)
[2016-03-26] MEDS: METOPROLOL TARTRATE 25 MG TABLET PO SCH (09:21)
[2016-03-26] MEDS: LISINOPRIL 20 MG TABLET PO SCH (09:21)
[2016-03-26] MEDS: INSULIN NPH/REGULAR 70/30 100 UNIT/ML SUBCUT SCH (09:22)
--- NOTE | 2016-03-26 09:59 | Physician Query Form ---
CLICK EDIT DOCUMENT TO SELECT QUERY ANSWER --> OK --> SIGN Rosa Crawley RN Clinical Regulatory Affairs Associate W) [phone] (f) [phone] [email or web address] PROVIDERS: Make your selection(s) from the choices in EACH section by typing an "x" and enter comments in the comment section. Please use your independent medical judgment in providing your response. This request does not imply that any particular answer is desired or expected. CLINICAL INDICATORS: (Providers should not edit this section) Based on documentation of "acute CHF", [id number], Echo showed EF of 45-50%, treated with IV Lasix. Please provide further specificity regarding CHF. TYPE: ( ) Systolic ( x) Diastolic ( ) Combined Systolic/Diastolic ( ) Other, please specify: ( ) Clinically unable to determine ( ) The patient does NOT have CHF COMMENTS: Use of terms such as suspected, likely, or probable (associated with a specific diagnosis that is being evaluated, monitored, or treated as if it exists) are acceptable and can be restated in the discharge summary if not ruled out. [facility]
[2016-03-26] MEDS: INSULIN LISPRO 100 UNIT/ML SUBCUT SCH ×2 (10:20→12:23)
[2016-03-26] MEDS: VERAPAMIL 120 MG TABLET PO SCH (10:22)
[2016-03-26 11:12] VITALS: BP 124/73
--- NOTE | 2016-03-26 11:36 | Discharge Summary ---
<Akua Rivas - Last Filed: 03/26/16 11:32> Hospital Course - Hospital Course Hospital Course: Ms. Fox was admitted on 03/24 with acute dyspnea, and acute CHF. He was admitted to ICU initially for closer observation. He was continued on IV lasix from the ED, ABG's, serial troponins and EKG's. Serial troponins negative. ECHO was obtained and revealed EF 45-50%. Dr. Kilpatrick saw on 03/24 with Cardiology for hx of SVT, CAD, HLD and CHF. Dr. Ainsley Pittman was consulted for sleep medicine for JAZMINE. Her JAZMINE had not been treated. Given weight gain and increased comorbidities, a re-eval sleep study post discharge will be set up. She has improved and has reached maximum benefit of her hospitalization. She will be discharged home today on appropriate medications and follow up. - Time spent with patient Time with patient DS: Greater than 30 minutes (due to plan, doc and med rec.) Diagnosis - Discharge Diagnosis (1) Acute diastolic (congestive) heart failure Status: Acute (2) Acute dyspnea Status: Acute (3) Diabetes mellitus Status: Chronic (4) HLD (hyperlipidemia) Status: Chronic Discharge Plan - Discharge Data Disposition: Disch To Home/Self Care - Discharge Medications New Furosemide Tab [Lasix Tab] 20 mg PO DAILY #30 tablet Continue Aspirin [Ecotrin] 81 mg PO DAILY Citalopram [CeleXA] 20 mg PO DAILY Famotidine Tab [Pepcid Tab] 20 mg PO BID Glimepiride [Amaryl] 4 mg PO BID W/MEALS Hum Insulin NPH/Reg Insulin Hm [NovoLIN 70/30] 30 unit SUBCUT QPM Hum Insulin NPH/Reg Insulin Hm [NovoLIN 70/30] 60 unit SUBCUT QAM Meloxicam [Mobic] 7.5 mg PO DAILY Nitroglycerin Sl Tab [Nitrostat] 0.4 mg SL Q5M PRN PRN Reason: Chest Pain Verapamil HCl [Verapamil Tab] 120 mg PO BID Albuterol Sulfate [Proair Respiclick] 2 puff INH QID cloNIDine TAB [Catapres Tab] 0.1 mg PO ONCE PRN PRN Reason: Blood Pressure-Decreased Lisinopril 20 mg PO BID Metoprolol Tartrate 25 mg PO BID - Follow Up or Referral - Forms/Instructions Exam - Constitutional Vitals: Period Temp Pulse Resp BP Sys/Chicas Pulse Ox Last 24 Hr 97.4 F-98.0 F 68-94 18-22 115-132/55-75 91-99 Discharge Results Procedures and tests throughout hospitalization: Pending Orders 03/24/16 11:18 Procalcitonin, S Routine Labs on day of discharge: Labs from last 24 hours 03/26/16 03/26/16 03/25/16 10:27 07:21 19:28 POC Glucose 192 H 71 L 145 H 03/25/16 03/25/16 16:12 15:52 POC Glucose 169 H 189 H DS: Provider Date of admission: 03/24/16 14:13 Primary care physician: . No PCP Attending physician on admission: Chapo Garibay Consults: 03/24/16 14:33 Consult to Physician [CONS] Routine Comment: Consulting Provider: Cardiology - [facility] 03/24/16 14:40 Consult to Pharmacy [CONS] Routine Reason for Pharmacy Consult: Adjust Meds Renal Funct 03/24/16 16:10 Consult to Physician [CONS] Routine Comment: JAZMINE Consulting Provider: Ainsley Pittman Person Notified: Vika Date Notified: 03/25/16 Time Notified: 11:48 Discharging clinician: Akua Rivas NP Expected date of discharge: 03/26/16 <Kala Stoll - Last Filed: 03/26/16 12:55> Diagnosis - Discharge Diagnosis (1) Acute dyspnea Status: Acute (2) Uncontrolled hypertension Status: Acute (3) JAZMINE (obstructive sleep apnea) Status: Chronic (4) Diabetes mellitus Status: Chronic Discharge Plan - Discharge Data Condition at Discharge: Stable Discharge Diet: heart healthy Activity: resume usual activities as tolerated Hygiene: no restrictions Contact your physician if you experience:: fever over 101, Shortness of breath Exam - Constitutional General appearance: no acute distress, morbidly obese - Head Head exam: Present: normocephalic, atraumatic - Eye Eye exam: Present: EOMI Pupils: Present: BENJIE - ENT ENT exam: Present: normal exam - Respiratory Respiratory exam: Present: clear to auscultation bilaterally - Cardiovascular Cardiovascular exam: Present: regular rate and rhythm - GI/Abdominal GI/Abdominal exam: Present: normal bowel sounds, soft - Extremities Exam Extremities exam: Present: full ROM - Back Exam Back exam: Present: normal inspection - Neurological Exam Neurological exam: Present: alert, oriented X3, CN II-XII intact - Psychiatric Psychiatric exam: Present: normal affect, normal mood - Skin Skin exam: Present: warm, intact
== END 2016-03-26 13:43 | disposition home or self-care (01) | DRG 291 ==
LOC: N.ED 10:31 → SUATTDRO 14:13 → N.EDINP 14:13 → N.ICU 15:06 → N.2E 03-25 16:09
PROVIDERS: ADMIT Student in an Organized Health Care Education/Training Program; ATTEND Family Medicine

== ENCOUNTER 2017-10-03 11:46 | Observation (INO) ==
[2017-10-03] MEDS ORDERED: ALBUTEROL/IPRATROPIUM 3 ML NEB RESP TX STA (12:05)
[2017-10-03] MEDS ORDERED: FUROSEMIDE 40 MG/4 ML VIAL IV STA ×2 (12:05→13:31)
[2017-10-03 12:41] LABS: Basophils % 0.6 % (0.0-0.8); Eosinophils # 0.1 10*3/uL (0.0-0.87); Eosinophils % 1.2 % (0.00-10.9); Hematocrit 42.1 VOL% (35.7-47.0); Hemoglobin 13.1 GM/DL (12.0-16.0); Immature Granulocytes % 0.8 %; Immature Granulocytes Absolute 0.05 #; Lymphocytes # 1.6 10*3/uL (1.4-4.0); Lymphocytes % 24.7 % (21.3-54.2); Mean Corpuscular HGB Conc 31.1 GM/DL (32-36); Mean Corpuscular Hemoglobin 30 PG (27-34); Mean Platelet Volume 10.3 FL (9.6-12.0); Monocytes # 0.5 10*3/uL (0.11-0.8); Monocytes % 7.6 % (1.7-12.7); Neutrophils # 4.3 10*3/uL (1.4-7.4); Neutrophils % 65.1 % (38.7-73.9); Platelet Count 241 T/CUMM (130-400); Red Blood Count 4.43 MC/CUMM (3.8-5.5); Red Cell Distribution Width 13.7 % (9.3-17.3); White Blood Count 6.6 T/CUMM (4-12)
[2017-10-03 12:47] LABS: Apearance,Urine CLEAR (Clear); Bilirubin,Urine Negative (Negative); Blood, Urine Negative (Negative); Glucose,Urine (UA) Negative (Negative); Ketones,Urine Negative (Negative); Mucus,Urine Occasional /LPF (Occasional); Nitrite,Urine Negative (Negative); Protein,Urine Negative; RBC,Urine 1 /HPF (0-4); Squamous Epithelial Cell,Urine Occasional /HPF (0-10); Urine Color Yellow (Yellow); Urine Specific Gravity 1.008 (1.001-1.035); Urine Urobilinogen < 2.0 EU/DL (0.2-1.0); WBC,Urine <1 /HPF (0-6)
[2017-10-03 12:55] LABS: PT Patient Result 10.4 SECS; Partial Thromboplastin Time 27.2 SECS (0-40)
[2017-10-03 13:11] LABS: Alanine Aminotransferase 41 U/L (13-56); Albumin 3.5 G/DL (3.4-5.0); Alkaline Phosphatase 75 U/L (45-117); Aspartate Amino Transferase 35 U/L (0-37); Blood Urea Nitrogen 18 MG/DL (7-18); Calcium 9.2 MG/DL (8.5-10.1); Glucose 161 MG/DL (74-106); Osmolality,Calculated 283.4 MOS/KG (273-304); Potassium 4.2 MMOL/L (3.5-5.1); Sodium 140 MMOL/L (136-145); Total Protein 8.1 G/DL (6.4-8.3)
[2017-10-03] MEDS ORDERED: PHENAZOPYRIDINE 95 MG TABLET PO STA (13:18)
[2017-10-03] MEDS ORDERED: LEVOFLOXACIN 750 MG TABLET PO STA (13:18)
[2017-10-03 13:33] LABS: Lactic Acid 2.7 MMOL/L (0.4-2.0)
[2017-10-03] MEDS ORDERED: ALBUTEROL NEB SOLN 5 MG/ML 20 ML/BOTTLE CONT NEB STA (13:51)
[2017-10-03] MEDS ORDERED: NITROGLYCERIN SL 0.4 MG TABLET SL PRN (16:05)
[2017-10-03] MEDS ORDERED: DEXTROSE 50% 25 GM/50 ML VIAL IV PRN (16:05)
[2017-10-03] MEDS ORDERED: cloNIDine 0.1 MG TABLET PO PRN (16:05)
[2017-10-03] MEDS ORDERED: GLUCAGON 1 MG VIAL IM PRN (16:05)
[2017-10-03] MEDS ORDERED: ALBUTEROL 2.5 MG/3 ML NEB RESP TX PRN (17:00)
[2017-10-03] MEDS ORDERED: cefTRIAXone 1,000 MG in SYRINGE 1 EACH IV SCH (17:00)
[2017-10-03] MEDS: PHENAZOPYRIDINE 95 MG TABLET PO SCH (17:25)
[2017-10-03] MEDS: GLIMEPIRIDE 4 MG TABLET PO SCH (17:25)
[2017-10-03 17:59] LABS: Lactic Acid 3.7 MMOL/L (0.4-2.0)
[2017-10-03] MEDS: VERAPAMIL 120 MG TABLET PO SCH ×2 (18:28→20:39)
[2017-10-03] MEDS: INSULIN REGULAR 100 UNIT/ML SUBCUT SCH ×2 (18:28→20:37)
[2017-10-03] MEDS: hydrALAZINE 20 MG/1 ML VIAL IV SCH ×2 (18:29→23:36)
[2017-10-03] MEDS: FAMOTIDINE 20 MG TABLET PO SCH (20:36)
[2017-10-03] MEDS: LISINOPRIL 20 MG TABLET PO SCH (20:36)
[2017-10-03] MEDS: METOPROLOL TARTRATE 25 MG TABLET PO SCH (20:37)
[2017-10-03] MEDS ORDERED: ENOXAPARIN 40 MG/0.4 ML SYRINGE SUBCUT SCH (21:00)
[2017-10-03] MEDS ORDERED: INSULIN NPH/REGULAR 70/30 100 UNIT/ML SUBCUT SCH (21:00)
[2017-10-03] MEDS ORDERED: ACETAMINOPHEN 325 MG TABLET PO PRN (21:56)
[2017-10-03] MEDS ORDERED: SODIUM CHLORIDE 0.9% 1,000 ML IV SCH (22:00)
[2017-10-03] MEDS: FUROSEMIDE 20 MG TABLET PO SCH (22:15)
[2017-10-04] MEDS: hydrALAZINE 20 MG/1 ML VIAL IV SCH (05:05)
[2017-10-04 05:27] LABS: Basophils % 0.6 % (0.0-0.8); Eosinophils # 0.1 10*3/uL (0.0-0.87); Eosinophils % 1.5 % (0.00-10.9); Hematocrit 37.5 VOL% (35.7-47.0); Hemoglobin 11.7 GM/DL (12.0-16.0); Immature Granulocytes % 0.8 %; Immature Granulocytes Absolute 0.04 #; Lymphocytes # 1.4 10*3/uL (1.4-4.0); Lymphocytes % 26.4 % (21.3-54.2); Mean Corpuscular HGB Conc 31.2 GM/DL (32-36); Mean Corpuscular Hemoglobin 29 PG (27-34); Mean Corpuscular Volume 93.1 FL (87-102); Mean Platelet Volume 10.5 FL (9.6-12.0); Monocytes # 0.5 10*3/uL (0.11-0.8); Monocytes % 9.3 % (1.7-12.7); Neutrophils # 3.2 10*3/uL (1.4-7.4); Neutrophils % 61.4 % (38.7-73.9); Platelet Count 225 T/CUMM (130-400); Red Blood Count 4.03 MC/CUMM (3.8-5.5); Red Cell Distribution Width 13.9 % (9.3-17.3); White Blood Count 5.3 T/CUMM (4-12)
[2017-10-04 05:53] LABS: Alanine Aminotransferase 31 U/L (13-56); Albumin 2.9 G/DL (3.4-5.0); Alkaline Phosphatase 59 U/L (45-117); Aspartate Amino Transferase 24 U/L (0-37); Bilirubin,Total < 0.39 MG/DL (0.2-1.0); Blood Urea Nitrogen 20 MG/DL (7-18); Calcium 8.9 MG/DL (8.5-10.1); Total Protein 6.9 G/DL (6.4-8.3)
[2017-10-04 05:54] LABS: Cholesterol 154 MG/DL (50-200); Glucose 113 MG/DL (74-106); HDL Cholesterol 52 MG/DL (40-60); Osmolality,Calculated 286.1 MOS/KG (273-304); Potassium 3.9 MMOL/L (3.5-5.1); Risk Ratio 2.96; Sodium 142 MMOL/L (136-145); Triglycerides 167 MG/DL (2-150); VLDL CHOLESTEROL 33.4 MG/DL
[2017-10-04] MEDS: INSULIN REGULAR 100 UNIT/ML SUBCUT SCH (07:21)
[2017-10-04] MEDS ORDERED: INSULIN NPH/REGULAR 70/30 100 UNIT/ML SUBCUT SCH (09:00)
[2017-10-04] MEDS ORDERED: CITALOPRAM 20 MG TABLET PO SCH (09:00)
[2017-10-04] MEDS ORDERED: ASPIRIN EC 81 MG TABLET PO SCH (09:00)
[2017-10-04] MEDS ORDERED: FUROSEMIDE 20 MG TABLET PO SCH (09:00)
[2017-10-04] MEDS ORDERED: MELOXICAM 7.5 MG TABLET PO SCH (09:00)
[2017-10-04] MEDS: FUROSEMIDE 20 MG TABLET PO SCH (09:08)
[2017-10-04] MEDS: LISINOPRIL 20 MG TABLET PO SCH (09:08)
[2017-10-04] MEDS: PHENAZOPYRIDINE 95 MG TABLET PO SCH (09:09)
[2017-10-04] MEDS: METOPROLOL TARTRATE 25 MG TABLET PO SCH (09:09)
[2017-10-04] MEDS: GLIMEPIRIDE 4 MG TABLET PO SCH (09:09)
[2017-10-04] MEDS: FAMOTIDINE 20 MG TABLET PO SCH (09:09)
[2017-10-04] MEDS: VERAPAMIL 120 MG TABLET PO SCH (09:11)
[2017-10-04 10:34] VITALS: BP 125/59
== END 2017-10-04 11:00 | disposition home or self-care (01) ==
LOC: N.ED 11:46 → N.EDINP 11:46 → N.5E 16:04
PROVIDERS: ADMIT Internal Medicine; ATTEND Internal Medicine

== ENCOUNTER 2018-03-31 15:24 | Observation (INO) ==
[2018-03-31] MEDS ORDERED: ONDANSETRON 4 MG/2 ML VIAL IV STA (16:40)
[2018-03-31] MEDS ORDERED: NITROGLYCERIN 2% OINT 1 INCH/GM PACK TOP STA (16:40)
[2018-03-31] MEDS ORDERED: MORPHINE 4 MG/1 ML VIAL IV STA (16:40)
[2018-03-31] MEDS ORDERED: ASPIRIN 325 MG TABLET PO STA (16:40)
[2018-03-31 16:46] LABS: Basophils % 0.5 % (0.0-0.8); Eosinophils # 0.1 10*3/uL (0.0-0.87); Eosinophils % 1.8 % (0.00-10.9); Hematocrit 42.9 VOL% (35.7-47.0); Immature Granulocytes % 0.5 %; Immature Granulocytes Absolute 0.03 #; Lymphocytes # 1.5 10*3/uL (1.4-4.0); Lymphocytes % 24.2 % (21.3-54.2); Mean Corpuscular HGB Conc 30.3 GM/DL (32-36); Mean Corpuscular Hemoglobin 28 PG (27-34); Mean Corpuscular Volume 92.7 FL (87-102); Mean Platelet Volume 10.8 FL (9.6-12.0); Monocytes # 0.4 10*3/uL (0.11-0.8); Monocytes % 6.4 % (1.7-12.7); Neutrophils # 4.2 10*3/uL (1.4-7.4); Neutrophils % 66.6 % (38.7-73.9); Platelet Count 234 T/CUMM (130-400); Red Blood Count 4.63 MC/CUMM (3.8-5.5); Red Cell Distribution Width 14.5 % (9.3-17.3); White Blood Count 6.3 T/CUMM (4-12)
[2018-03-31] MEDS ORDERED: FUROSEMIDE 40 MG/4 ML VIAL IV STA (16:46)
[2018-03-31] MEDS ORDERED: ENOXAPARIN 100 MG/ML SYRINGE SUBCUT STA (16:48)
[2018-03-31 17:01] LABS: PT Patient Result 10.4 SECS
[2018-03-31 17:15] LABS: Alanine Aminotransferase 49 U/L (13-56); Albumin 3.3 G/DL (3.4-5.0); Alkaline Phosphatase 82 U/L (45-117); Aspartate Amino Transferase 41 U/L (0-37); Bilirubin,Total < 0.39 MG/DL (0.2-1.0); Blood Urea Nitrogen 18 MG/DL (7-18); Calcium 9.1 MG/DL (8.5-10.1); Glucose 263 MG/DL (74-106); Osmolality,Calculated 283.8 MOS/KG (273-304); Potassium 4.2 MMOL/L (3.5-5.1); Sodium 137 MMOL/L (136-145); Total Protein 8.2 G/DL (6.4-8.3); Troponin I < 0.015 NG/ML (0.00-0.045)
[2018-03-31] MEDS ORDERED: ONDANSETRON 4 MG/2 ML VIAL IV PRN (18:34)
[2018-03-31] MEDS ORDERED: ALBUTEROL 2.5 MG/3 ML NEB RESP TX PRN (18:41)
[2018-03-31] MEDS ORDERED: GLUCAGON 1 MG VIAL IM PRN (18:43)
[2018-03-31] MEDS ORDERED: DEXTROSE 50% 25 GM/50 ML SYRINGE IV PRN (18:43)
[2018-03-31] MEDS: MAGNESIUM OXIDE 400 MG TABLET PO SCH (23:27)
[2018-03-31] MEDS: APIXABAN 2.5 MG TABLET PO SCH (23:28)
[2018-03-31] MEDS: INSULIN LISPRO 100 UNIT/ML SUBCUT SCH (23:40)
[2018-03-31] MEDS: DILTIAZEM CD 240 MG CAPSULE PO SCH (23:40)
[2018-03-31] MEDS: LISINOPRIL 20 MG TABLET PO SCH (23:41)
[2018-04-01 04:32] LABS: Basophils % 0.6 % (0.0-0.8); Eosinophils # 0.1 10*3/uL (0.0-0.87); Eosinophils % 2.2 % (0.00-10.9); Hematocrit 36.5 VOL% (35.7-47.0); Hemoglobin 11.1 GM/DL (12.0-16.0); Immature Granulocytes % 0.7 %; Immature Granulocytes Absolute 0.04 #; Lymphocytes # 1.5 10*3/uL (1.4-4.0); Lymphocytes % 27.3 % (21.3-54.2); Mean Corpuscular HGB Conc 30.4 GM/DL (32-36); Mean Corpuscular Hemoglobin 29 PG (27-34); Mean Corpuscular Volume 94.1 FL (87-102); Mean Platelet Volume 10.8 FL (9.6-12.0); Monocytes # 0.5 10*3/uL (0.11-0.8); Monocytes % 9.3 % (1.7-12.7); Neutrophils # 3.2 10*3/uL (1.4-7.4); Neutrophils % 59.9 % (38.7-73.9); Platelet Count 212 T/CUMM (130-400); Red Blood Count 3.88 MC/CUMM (3.8-5.5); Red Cell Distribution Width 14.6 % (9.3-17.3); White Blood Count 5.4 T/CUMM (4-12)
[2018-04-01 04:49] LABS: Calcium 8.6 MG/DL (8.5-10.1); Osmolality,Calculated 289.4 MOS/KG (273-304); Potassium 4.6 MMOL/L (3.5-5.1)
[2018-04-01] MEDS: MAGNESIUM OXIDE 400 MG TABLET PO SCH ×2 (09:00→21:54)
[2018-04-01] MEDS: CITALOPRAM 20 MG TABLET PO SCH (09:00)
[2018-04-01] MEDS: LISINOPRIL 20 MG TABLET PO SCH ×2 (09:00→21:54)
[2018-04-01] MEDS: PANTOPRAZOLE 40 MG TABLET PO SCH (09:01)
[2018-04-01] MEDS: POTASSIUM CHLORIDE 20 MEQ TABLET PO SCH (09:01)
[2018-04-01] MEDS: DILTIAZEM CD 240 MG CAPSULE PO SCH ×2 (09:01→21:54)
[2018-04-01] MEDS: Mirabegron [Myrbetriq] 50 MG PO SCH (09:02)
[2018-04-01] MEDS: APIXABAN 2.5 MG TABLET PO SCH ×2 (09:02→21:55)
[2018-04-01] MEDS: ASPIRIN EC 81 MG TABLET PO SCH (09:02)
[2018-04-01] MEDS: INSULIN LISPRO 100 UNIT/ML SUBCUT SCH ×4 (09:02→21:55)
[2018-04-01] MEDS: MELOXICAM 7.5 MG TABLET PO SCH (09:02)
[2018-04-01] MEDS: ATENOLOL 100 MG TABLET PO SCH (09:02)
[2018-04-01] MEDS: FUROSEMIDE 20 MG TABLET PO SCH (09:02)
[2018-04-01 10:50] LABS: Risk Ratio 3.49
[2018-04-01] MEDS: ACETAMINOPHEN 325 MG TABLET PO SCH ×2 (10:55→21:54)
[2018-04-01] MEDS: INSULIN NPH/REGULAR 70/30 100 UNIT/ML SUBCUT SCH ×2 (13:31→16:59)
[2018-04-01 14:52] LABS: Apearance,Urine CLOUDY (Clear); Bacteria,Urine Moderate /HPF (Few); Bilirubin,Urine Negative (Negative); Blood, Urine Small mg/dL (Negative); Glucose,Urine (UA) Negative (Negative); Hyaline Casts,Urine 120 /LPF (0-3); Ketones,Urine Negative (Negative); Nitrite,Urine Negative (Negative); Protein,Urine 30 MG/DL; Squamous Epithelial Cell,Urine Occasional /HPF (0-10); Urine Color Amber (Yellow); Urine Specific Gravity 1.016 (1.001-1.035); Urine Urobilinogen < 2.0 EU/DL (0.2-1.0); WBC,Urine 460 /HPF (0-6)
[2018-04-01] MEDS: GABAPENTIN 100 MG CAPSULE PO SCH ×2 (15:35→21:54)
[2018-04-01] MEDS: GLIMEPIRIDE 4 MG TABLET PO SCH (16:59)
[2018-04-01] MEDS ORDERED: INSULIN GLARGINE 100 UNIT/ML SUBCUT SCH (21:00)
[2018-04-01] MEDS: FAMOTIDINE 20 MG TABLET PO SCH (21:55)
[2018-04-02] MEDS ORDERED: cefTRIAXone 1,000 MG in SYRINGE 1 EACH IV SCH (08:00)
[2018-04-02] MEDS: ASPIRIN EC 81 MG TABLET PO SCH (08:52)
[2018-04-02] MEDS: GABAPENTIN 100 MG CAPSULE PO SCH (08:52)
[2018-04-02] MEDS: GLIMEPIRIDE 4 MG TABLET PO SCH (08:52)
[2018-04-02] MEDS: ATENOLOL 100 MG TABLET PO SCH (08:53)
[2018-04-02] MEDS: MAGNESIUM OXIDE 400 MG TABLET PO SCH (08:53)
[2018-04-02] MEDS: FUROSEMIDE 20 MG TABLET PO SCH (08:53)
[2018-04-02] MEDS: APIXABAN 2.5 MG TABLET PO SCH (08:53)
[2018-04-02] MEDS: LISINOPRIL 20 MG TABLET PO SCH (08:53)
[2018-04-02] MEDS: FAMOTIDINE 20 MG TABLET PO SCH (08:54)
[2018-04-02] MEDS: MELOXICAM 7.5 MG TABLET PO SCH (08:54)
[2018-04-02] MEDS: CITALOPRAM 20 MG TABLET PO SCH (08:54)
[2018-04-02] MEDS: ACETAMINOPHEN 325 MG TABLET PO SCH (08:54)
[2018-04-02] MEDS: DILTIAZEM CD 240 MG CAPSULE PO SCH (08:55)
[2018-04-02] MEDS: POTASSIUM CHLORIDE 20 MEQ TABLET PO SCH (08:55)
[2018-04-02] MEDS: PANTOPRAZOLE 40 MG TABLET PO SCH (08:55)
[2018-04-02] MEDS: INSULIN NPH/REGULAR 70/30 100 UNIT/ML SUBCUT SCH ×2 (08:55→12:33)
[2018-04-02] MEDS: INSULIN LISPRO 100 UNIT/ML SUBCUT SCH ×2 (08:58→12:33)
[2018-04-02] MEDS: Mirabegron [Myrbetriq] 50 MG PO SCH (08:58)
[2018-04-02 12:14] VITALS: BP 116/63
== END 2018-04-02 14:13 | disposition home or self-care (01) ==
LOC: N.EDINP 15:24 → N.ED 15:24 → N.TELES 19:37
PROVIDERS: ADMIT Internal Medicine; ATTEND Internal Medicine

== ENCOUNTER 2018-09-28 16:17 | Observation (INO) ==
[2018-09-28 16:55] LABS: Basophils % 0.7 % (0.0-0.8); Eosinophils # 0.1 10*3/uL (0.0-0.87); Eosinophils % 1.5 % (0.00-10.9); Hematocrit 39.2 VOL% (35.7-47.0); Hemoglobin 12.6 GM/DL (12.0-16.0); Immature Granulocytes % 0.3 %; Immature Granulocytes Absolute 0.02 #; Lymphocytes # 1.6 10*3/uL (1.4-4.0); Lymphocytes % 26.4 % (21.3-54.2); Mean Corpuscular HGB Conc 32.1 GM/DL (32-36); Mean Corpuscular Volume 91.4 FL (87-102); Mean Platelet Volume 10.5 FL (9.6-12.0); Monocytes % 8.2 % (1.7-12.7); Neutrophils % 62.9 % (38.7-73.9); Platelet Count 202 T/CUMM (130-400); Red Blood Count 4.29 MC/CUMM (3.8-5.5); Red Cell Distribution Width 13.9 % (9.3-17.3); White Blood Count 6.1 T/CUMM (4-12)
[2018-09-28 17:24] LABS: Alanine Aminotransferase 31 U/L (13-56); Albumin 3.3 G/DL (3.4-5.0); Alkaline Phosphatase 68 U/L (45-117); Aspartate Amino Transferase 24 U/L (0-37); Bilirubin,Total < 0.39 MG/DL (0.2-1.0); Blood Urea Nitrogen 20 MG/DL (7-18); Calcium 9.7 MG/DL (8.5-10.1); Glucose 213 MG/DL (74-106); Osmolality,Calculated 289.3 MOS/KG (273-304); Total Protein 8.2 G/DL (6.4-8.3)
[2018-09-28] MEDS ORDERED: METOPROLOL TARTRATE 5 MG/5 ML VIAL IV STA (17:37)
[2018-09-28] MEDS ORDERED: ONDANSETRON 4 MG/2 ML VIAL IV PRN (18:08)
[2018-09-28] MEDS ORDERED: ACETAMINOPHEN 325 MG TABLET PO PRN (18:08)
[2018-09-28] MEDS ORDERED: ENOXAPARIN 40 MG/0.4 ML SYRINGE SUBCUT SCH (18:30)
[2018-09-28] MEDS: MAGNESIUM OXIDE 400 MG TABLET PO SCH (22:39)
[2018-09-28] MEDS: SACUBITRIL/VALSARTAN 49-51 MG TABLET PO SCH (22:39)
[2018-09-28] MEDS: APIXABAN 2.5 MG TABLET PO SCH (22:40)
[2018-09-28] MEDS: GABAPENTIN 100 MG CAPSULE PO SCH (22:40)
[2018-09-28] MEDS: FUROSEMIDE 20 MG TABLET PO SCH (22:40)
[2018-09-28] MEDS: FAMOTIDINE 20 MG TABLET PO SCH (22:41)
[2018-09-28] MEDS: CARVEDILOL 25 MG TABLET PO SCH (22:41)
[2018-09-29] MEDS ORDERED: ALBUTEROL 2.5 MG/3 ML NEB RESP TX PRN (07:00)
[2018-09-29 07:06] LABS: Risk Ratio 3.23; VLDL CHOLESTEROL 23.8 MG/DL
[2018-09-29] MEDS ORDERED: SPIRONOLACTONE 25 MG TABLET PO SCH (09:00)
[2018-09-29] MEDS ORDERED: PANTOPRAZOLE 40 MG TABLET PO SCH (09:00)
[2018-09-29] MEDS ORDERED: MELOXICAM 7.5 MG TABLET PO SCH (09:00)
[2018-09-29] MEDS ORDERED: Mirabegron [Myrbetriq] 50 MG PO SCH (09:00)
[2018-09-29] MEDS ORDERED: POTASSIUM CHLORIDE 20 MEQ TABLET PO SCH (09:00)
[2018-09-29] MEDS ORDERED: ASPIRIN EC 81 MG TABLET PO SCH (09:00)
[2018-09-29] MEDS: MAGNESIUM OXIDE 400 MG TABLET PO SCH (09:52)
[2018-09-29] MEDS: CARVEDILOL 25 MG TABLET PO SCH (09:52)
[2018-09-29] MEDS: FUROSEMIDE 20 MG TABLET PO SCH (09:52)
[2018-09-29] MEDS: GABAPENTIN 100 MG CAPSULE PO SCH ×2 (09:52→14:34)
[2018-09-29] MEDS: FAMOTIDINE 20 MG TABLET PO SCH (09:52)
[2018-09-29] MEDS: APIXABAN 2.5 MG TABLET PO SCH (09:53)
[2018-09-29] MEDS: SACUBITRIL/VALSARTAN 49-51 MG TABLET PO SCH (10:44)
[2018-09-29] MEDS ORDERED: SACUBITRIL/VALSARTAN 49-51 MG TABLET PO ONE (11:00)
[2018-09-29] MEDS ORDERED: GLUCAGON 1 MG VIAL IM PRN (11:34)
[2018-09-29] MEDS ORDERED: DEXTROSE 10% 250 ML BAG IV PRN (11:34)
[2018-09-29 11:36] VITALS: BP 129/76
[2018-09-29] MEDS: INSULIN LISPRO 100 UNIT/ML SUBCUT SCH ×2 (12:21→17:27)
[2018-09-29] MEDS ORDERED: CARVEDILOL 25 MG TABLET PO SCH (17:00)
[2018-09-29] MEDS ORDERED: METOPROLOL TARTRATE 50 MG TABLET PO SCH (21:00)
== END 2018-09-29 17:30 | disposition home or self-care (01) ==
LOC: N.EDINP 16:17 → N.ED 16:17 → N.TELES 18:57
PROVIDERS: ADMIT Family Medicine; ATTEND Family Medicine

== ENCOUNTER 2018-11-20 18:08 | Inpatient (IN) ==
[2018-11-20] MEDS ORDERED: LIDOCAINE 1%/EPI INJ 20 ML VIAL ONE (19:02)
[2018-11-20] MEDS ORDERED: TISSUE ADHESIVE 1 EACH APPLICATOR TOP ONE (19:20)
[2018-11-20] MEDS ORDERED: HYDROmorphone 2 MG/1 ML VIAL IV STA ×2 (20:11→22:52)
[2018-11-20] MEDS ORDERED: ONDANSETRON 4 MG/2 ML VIAL ONE (20:20)
[2018-11-20] MEDS ORDERED: ONDANSETRON 4 MG/2 ML VIAL IV STA (20:40)
[2018-11-20 23:00] LABS: Basophils % 0.4 % (0.0-0.8); Eosinophils # 0.1 10*3/uL (0.0-0.87); Hematocrit 34.7 VOL% (35.7-47.0); Hemoglobin 10.9 GM/DL (12.0-16.0); Immature Granulocytes % 1.1 %; Lymphocytes # 1.4 10*3/uL (1.4-4.0); Lymphocytes % 14.4 % (21.3-54.2); Mean Corpuscular HGB Conc 31.4 GM/DL (32-36); Mean Corpuscular Volume 94.8 FL (87-102); Mean Platelet Volume 10.2 FL (9.6-12.0); Monocytes % 7.2 % (1.7-12.7); Neutrophils % 75.9 % (38.7-73.9); Platelet Count 172 T/CUMM (130-400); Red Blood Count 3.66 MC/CUMM (3.8-5.5); Red Cell Distribution Width 13.8 % (9.3-17.3); White Blood Count 9.4 T/CUMM (4-12)
[2018-11-20 23:20] LABS: Calcium 9.3 MG/DL (8.5-10.1); Osmolality,Calculated 292.3 MOS/KG (273-304)
[2018-11-21] MEDS ORDERED: HYDROmorphone 2 MG/1 ML VIAL IV STA (02:09)
[2018-11-21] MEDS ORDERED: ONDANSETRON 4 MG/2 ML VIAL IV PRN (02:18)
[2018-11-21] MEDS: DEXTROSE 5% NACL 0.45% 1,000 ML IV SCH ×3 (03:54→18:01)
[2018-11-21] MEDS ORDERED: INFLUENZA VIRUS VACCINE 0.5 ML SYRINGE IM ONE (04:16)
[2018-11-21 04:29] LABS: Basophils % 0.4 % (0.0-0.8); Eosinophils % 0.4 % (0.00-10.9); Hematocrit 33.9 VOL% (35.7-47.0); Hemoglobin 10.6 GM/DL (12.0-16.0); Immature Granulocytes % 0.6 %; Immature Granulocytes Absolute 0.05 #; Lymphocytes % 11.9 % (21.3-54.2); Mean Corpuscular HGB Conc 31.3 GM/DL (32-36); Mean Corpuscular Volume 95.2 FL (87-102); Mean Platelet Volume 10.6 FL (9.6-12.0); Neutrophils % 80.7 % (38.7-73.9); Platelet Count 177 T/CUMM (130-400); Red Blood Count 3.56 MC/CUMM (3.8-5.5); Red Cell Distribution Width 13.8 % (9.3-17.3); White Blood Count 8.5 T/CUMM (4-12)
[2018-11-21 04:47] LABS: Calcium 8.8 MG/DL (8.5-10.1); Osmolality,Calculated 287.8 MOS/KG (273-304)
[2018-11-21] MEDS: HYDROmorphone 2 MG/1 ML VIAL IV PRN ×4 (06:03→18:04)
[2018-11-21] MEDS: PANTOPRAZOLE 40 MG TABLET PO SCH (09:46)
[2018-11-21] MEDS: INSULIN REGULAR 100 UNIT/ML SUBCUT SCH ×4 (10:01→20:55)
[2018-11-21] MEDS: SACUBITRIL/VALSARTAN 49-51 MG TABLET PO SCH ×2 (13:20→20:09)
[2018-11-21] MEDS: POTASSIUM CHLORIDE 20 MEQ TABLET PO SCH (13:20)
[2018-11-21] MEDS: SPIRONOLACTONE 25 MG TABLET PO SCH (13:20)
[2018-11-21] MEDS: APIXABAN 5 MG TABLET PO SCH ×2 (13:20→20:09)
[2018-11-21] MEDS: FUROSEMIDE 40 MG TABLET PO SCH (13:21)
[2018-11-21] MEDS: INSULIN NPH/REGULAR 70/30 100 UNIT/ML SUBCUT SCH ×2 (13:25→18:06)
[2018-11-21] MEDS: GABAPENTIN 100 MG CAPSULE PO SCH ×2 (15:31→20:09)
[2018-11-21] MEDS: GLIMEPIRIDE 4 MG TABLET PO SCH (18:06)
[2018-11-21] MEDS: MAGNESIUM OXIDE 400 MG TABLET PO SCH (20:09)
[2018-11-22] MEDS: HYDROmorphone 2 MG/1 ML VIAL IV PRN ×4 (00:49→15:33)
[2018-11-22] MEDS: DEXTROSE 5% NACL 0.45% 1,000 ML IV SCH ×3 (02:02→19:30)
[2018-11-22] MEDS: INSULIN REGULAR 100 UNIT/ML SUBCUT SCH ×4 (09:55→20:49)
[2018-11-22] MEDS: INSULIN NPH/REGULAR 70/30 100 UNIT/ML SUBCUT SCH ×3 (09:56→17:01)
[2018-11-22] MEDS: ROSUVASTATIN 10 MG TABLET PO SCH (09:57)
[2018-11-22] MEDS: FUROSEMIDE 40 MG TABLET PO SCH (09:57)
[2018-11-22] MEDS: SPIRONOLACTONE 25 MG TABLET PO SCH (09:57)
[2018-11-22] MEDS: GABAPENTIN 100 MG CAPSULE PO SCH ×3 (09:58→20:49)
[2018-11-22] MEDS: MAGNESIUM OXIDE 400 MG TABLET PO SCH ×2 (09:58→20:49)
[2018-11-22] MEDS: MELOXICAM 7.5 MG TABLET PO SCH (09:58)
[2018-11-22] MEDS: APIXABAN 5 MG TABLET PO SCH ×2 (09:58→20:49)
[2018-11-22] MEDS: POTASSIUM CHLORIDE 20 MEQ TABLET PO SCH (09:58)
[2018-11-22] MEDS: SACUBITRIL/VALSARTAN 49-51 MG TABLET PO SCH ×2 (09:58→20:49)
[2018-11-22] MEDS: PANTOPRAZOLE 40 MG TABLET PO SCH (09:59)
[2018-11-22] MEDS: GLIMEPIRIDE 4 MG TABLET PO SCH ×2 (09:59→17:01)
[2018-11-22 14:45] LABS: Troponin I < 0.015 NG/ML (0.00-0.045)
[2018-11-22] MEDS ORDERED: AMIODARONE INJ 150 MG in DEXTROSE 5% 100 ML IV ONE (17:19)
[2018-11-22] MEDS ORDERED: AMIODARONE INJ 450 MG in DEXTROSE 5% 241 ML IV SCH (18:30)
[2018-11-22] MEDS: ACETAMINOPHEN 325 MG TABLET PO PRN (23:05)
[2018-11-23] MEDS: AMIODARONE INJ 450 MG in DEXTROSE 5% 241 ML IV SCH ×2 (00:38→17:05)
[2018-11-23] MEDS: DEXTROSE 5% NACL 0.45% 1,000 ML IV SCH ×4 (04:52→23:26)
[2018-11-23 05:01] LABS: Basophils % 0.6 % (0.0-0.8); Eosinophils # 0.1 10*3/uL (0.0-0.87); Eosinophils % 1.3 % (0.00-10.9); Hematocrit 32.8 VOL% (35.7-47.0); Hemoglobin 10.4 GM/DL (12.0-16.0); Immature Granulocytes % 0.8 %; Immature Granulocytes Absolute 0.05 #; Lymphocytes # 1.2 10*3/uL (1.4-4.0); Lymphocytes % 19.2 % (21.3-54.2); Mean Corpuscular HGB Conc 31.7 GM/DL (32-36); Mean Corpuscular Volume 94.3 FL (87-102); Mean Platelet Volume 10.5 FL (9.6-12.0); Monocytes % 9.6 % (1.7-12.7); Neutrophils % 68.5 % (38.7-73.9); Platelet Count 175 T/CUMM (130-400); Red Blood Count 3.48 MC/CUMM (3.8-5.5); Red Cell Distribution Width 13.9 % (9.3-17.3); White Blood Count 6.2 T/CUMM (4-12)
[2018-11-23 05:25] LABS: Calcium 8.1 MG/DL (8.5-10.1); Osmolality,Calculated 276.1 MOS/KG (273-304)
[2018-11-23 06:03] LABS: Albumin 2.6 G/DL (3.4-5.0); Bilirubin,Direct 0.12 MG/DL (0.0-0.20); Bilirubin,Indirect 0.4 MG/DL (0.0-1.0); Bilirubin,Total 0.5 MG/DL (0.2-1.0); Thyroid Stimulating Hormone 2.66 uIU/ml (0.358-3.74); Total Protein 6.8 G/DL (6.4-8.3)
[2018-11-23] MEDS: GABAPENTIN 100 MG CAPSULE PO SCH ×3 (09:05→20:54)
[2018-11-23] MEDS: SPIRONOLACTONE 25 MG TABLET PO SCH (09:05)
[2018-11-23] MEDS: GLIMEPIRIDE 4 MG TABLET PO SCH ×2 (09:05→17:05)
[2018-11-23] MEDS: PANTOPRAZOLE 40 MG TABLET PO SCH (09:05)
[2018-11-23] MEDS: POTASSIUM CHLORIDE 20 MEQ TABLET PO SCH (09:05)
[2018-11-23] MEDS: ROSUVASTATIN 10 MG TABLET PO SCH (09:05)
[2018-11-23] MEDS: FUROSEMIDE 40 MG TABLET PO SCH (09:05)
[2018-11-23] MEDS: APIXABAN 5 MG TABLET PO SCH ×2 (09:06→20:55)
[2018-11-23] MEDS: SACUBITRIL/VALSARTAN 49-51 MG TABLET PO SCH ×2 (09:06→22:39)
[2018-11-23] MEDS: INSULIN NPH/REGULAR 70/30 100 UNIT/ML SUBCUT SCH ×3 (09:06→17:04)
[2018-11-23] MEDS: MAGNESIUM OXIDE 400 MG TABLET PO SCH ×2 (09:06→20:54)
[2018-11-23] MEDS: MELOXICAM 7.5 MG TABLET PO SCH (09:06)
[2018-11-23] MEDS: INSULIN REGULAR 100 UNIT/ML SUBCUT SCH ×4 (09:07→23:27)
[2018-11-23] MEDS: NF- (Mirabegron [Myrbetriq] 50 MG) PO SCH (09:07)
[2018-11-23] MEDS: HYDROmorphone 2 MG/1 ML VIAL IV PRN ×2 (12:50→20:56)
[2018-11-23] MEDS: AMIODARONE 200 MG TABLET PO SCH ×2 (14:35→20:55)
[2018-11-24] MEDS: ACETAMINOPHEN 325 MG TABLET PO PRN (02:07)
[2018-11-24] MEDS: cefTRIAXone 1,000 MG in SYRINGE 1 EACH IV SCH (03:19)
[2018-11-24 04:43] LABS: Apearance,Urine CLEAR (Clear); Bacteria,Urine Occasional /HPF (Few); Bilirubin,Urine Negative (Negative); Blood, Urine Negative (Negative); Glucose,Urine (UA) Negative (Negative); Ketones,Urine Negative (Negative); Nitrite,Urine Negative (Negative); Protein,Urine Negative; RBC,Urine 2 /HPF (0-4); Squamous Epithelial Cell,Urine Occasional /HPF (0-10); Urine Color Straw (Yellow); Urine Specific Gravity 1.003 (1.001-1.035); Urine Urobilinogen < 2.0 EU/DL (0.2-1.0); WBC,Urine 1 /HPF (0-6)
[2018-11-24 08:18] LABS: Basophils % 0.3 % (0.0-0.8); Eosinophils # 0.1 10*3/uL (0.0-0.87); Hemoglobin 9.3 GM/DL (12.0-16.0); Immature Granulocytes % 0.5 %; Immature Granulocytes Absolute 0.03 #; Lymphocytes # 1.1 10*3/uL (1.4-4.0); Lymphocytes % 17.3 % (21.3-54.2); Mean Corpuscular Volume 96.2 FL (87-102); Mean Platelet Volume 9.9 FL (9.6-12.0); Monocytes % 8.1 % (1.7-12.7); Neutrophils % 71.8 % (38.7-73.9); Platelet Count 164 T/CUMM (130-400); Red Blood Count 3.12 MC/CUMM (3.8-5.5); Red Cell Distribution Width 14.4 % (9.3-17.3); White Blood Count 6.5 T/CUMM (4-12)
[2018-11-24] MEDS: INSULIN REGULAR 100 UNIT/ML SUBCUT SCH ×4 (08:49→22:03)
[2018-11-24] MEDS: INSULIN NPH/REGULAR 70/30 100 UNIT/ML SUBCUT SCH ×3 (08:49→16:07)
[2018-11-24] MEDS: SACUBITRIL/VALSARTAN 49-51 MG TABLET PO SCH ×2 (08:50→22:04)
[2018-11-24] MEDS: MAGNESIUM OXIDE 400 MG TABLET PO SCH ×2 (08:50→22:04)
[2018-11-24] MEDS: POTASSIUM CHLORIDE 20 MEQ TABLET PO SCH (08:50)
[2018-11-24] MEDS: MELOXICAM 7.5 MG TABLET PO SCH (08:50)
[2018-11-24] MEDS: ROSUVASTATIN 10 MG TABLET PO SCH (08:50)
[2018-11-24] MEDS: PANTOPRAZOLE 40 MG TABLET PO SCH (08:51)
[2018-11-24] MEDS: GABAPENTIN 100 MG CAPSULE PO SCH ×3 (08:51→22:04)
[2018-11-24] MEDS: AMIODARONE 200 MG TABLET PO SCH ×2 (08:51→22:04)
[2018-11-24] MEDS: GLIMEPIRIDE 4 MG TABLET PO SCH ×2 (08:51→16:07)
[2018-11-24] MEDS: SPIRONOLACTONE 25 MG TABLET PO SCH (08:51)
[2018-11-24] MEDS: FUROSEMIDE 40 MG TABLET PO SCH (08:51)
[2018-11-24] MEDS: APIXABAN 5 MG TABLET PO SCH ×2 (08:51→22:05)
[2018-11-24 08:52] LABS: Calcium 8.2 MG/DL (8.5-10.1)
[2018-11-24] MEDS: NF- (Mirabegron [Myrbetriq] 50 MG) PO SCH (08:52)
[2018-11-24] MEDS: DEXTROSE 5% NACL 0.45% 1,000 ML IV SCH ×2 (09:45→17:54)
[2018-11-24] MEDS: HYDROmorphone 2 MG/1 ML VIAL IV PRN ×3 (10:36→22:05)
[2018-11-25] MEDS: DEXTROSE 5% NACL 0.45% 1,000 ML IV SCH ×3 (01:29→18:18)
[2018-11-25] MEDS: cefTRIAXone 1,000 MG in SYRINGE 1 EACH IV SCH (02:50)
[2018-11-25] MEDS: HYDROmorphone 2 MG/1 ML VIAL IV PRN ×2 (03:07→12:29)
[2018-11-25 05:37] LABS: Basophils % 0.7 % (0.0-0.8); Eosinophils # 0.1 10*3/uL (0.0-0.87); Eosinophils % 2.3 % (0.00-10.9); Hematocrit 32.3 VOL% (35.7-47.0); Hemoglobin 9.8 GM/DL (12.0-16.0); Immature Granulocytes % 0.8 %; Immature Granulocytes Absolute 0.05 #; Lymphocytes # 1.2 10*3/uL (1.4-4.0); Mean Corpuscular HGB Conc 30.3 GM/DL (32-36); Mean Platelet Volume 10.4 FL (9.6-12.0); Monocytes % 8.8 % (1.7-12.7); Neutrophils % 68.4 % (38.7-73.9); Platelet Count 189 T/CUMM (130-400); Red Blood Count 3.33 MC/CUMM (3.8-5.5); Red Cell Distribution Width 14.5 % (9.3-17.3); White Blood Count 6.1 T/CUMM (4-12)
[2018-11-25 06:01] LABS: Calcium 9.1 MG/DL (8.5-10.1); Osmolality,Calculated 280.1 MOS/KG (273-304)
[2018-11-25] MEDS: ROSUVASTATIN 10 MG TABLET PO SCH (09:34)
[2018-11-25] MEDS: MAGNESIUM OXIDE 400 MG TABLET PO SCH ×2 (09:37→21:32)
[2018-11-25] MEDS: GABAPENTIN 100 MG CAPSULE PO SCH ×3 (09:39→21:33)
[2018-11-25] MEDS: AMIODARONE 200 MG TABLET PO SCH ×2 (09:39→21:33)
[2018-11-25] MEDS: MELOXICAM 7.5 MG TABLET PO SCH (09:39)
[2018-11-25] MEDS: GLIMEPIRIDE 4 MG TABLET PO SCH ×2 (09:40→17:38)
[2018-11-25] MEDS: APIXABAN 5 MG TABLET PO SCH ×2 (09:40→21:33)
[2018-11-25] MEDS: PANTOPRAZOLE 40 MG TABLET PO SCH (09:40)
[2018-11-25] MEDS: FUROSEMIDE 40 MG TABLET PO SCH (09:41)
[2018-11-25] MEDS: POTASSIUM CHLORIDE 20 MEQ TABLET PO SCH (09:41)
[2018-11-25] MEDS: SPIRONOLACTONE 25 MG TABLET PO SCH (09:42)
[2018-11-25] MEDS: INSULIN REGULAR 100 UNIT/ML SUBCUT SCH ×4 (09:43→21:04)
[2018-11-25] MEDS: INSULIN NPH/REGULAR 70/30 100 UNIT/ML SUBCUT SCH ×3 (09:43→17:38)
[2018-11-25] MEDS: SACUBITRIL/VALSARTAN 49-51 MG TABLET PO SCH ×2 (10:27→22:46)
[2018-11-25] MEDS: NF- (Mirabegron [Myrbetriq] 50 MG) PO SCH (10:27)
[2018-11-25 11:25] LABS: Calcium 8.7 MG/DL (8.5-10.1); Osmolality,Calculated 284.5 MOS/KG (273-304)
[2018-11-26] MEDS: DEXTROSE 5% NACL 0.45% 1,000 ML IV SCH
[2018-11-26] MEDS: cefTRIAXone 1,000 MG in SYRINGE 1 EACH IV SCH (02:44)
[2018-11-26 04:41] LABS: Basophils % 0.3 % (0.0-0.8); Eosinophils # 0.1 10*3/uL (0.0-0.87); Hematocrit 29.6 VOL% (35.7-47.0); Hemoglobin 9.3 GM/DL (12.0-16.0); Immature Granulocytes % 0.6 %; Immature Granulocytes Absolute 0.04 #; Lymphocytes # 1.2 10*3/uL (1.4-4.0); Lymphocytes % 18.2 % (21.3-54.2); Mean Corpuscular HGB Conc 31.4 GM/DL (32-36); Mean Corpuscular Volume 95.5 FL (87-102); Mean Platelet Volume 10.4 FL (9.6-12.0); Monocytes % 10.3 % (1.7-12.7); Neutrophils % 68.6 % (38.7-73.9); Platelet Count 198 T/CUMM (130-400); Red Cell Distribution Width 14.2 % (9.3-17.3); White Blood Count 6.4 T/CUMM (4-12)
[2018-11-26 05:12] LABS: Calcium 9.1 MG/DL (8.5-10.1); Osmolality,Calculated 286.1 MOS/KG (273-304)
[2018-11-26] MEDS: INSULIN REGULAR 100 UNIT/ML SUBCUT SCH ×2 (08:39→13:37)
[2018-11-26] MEDS: GABAPENTIN 100 MG CAPSULE PO SCH (09:18)
[2018-11-26] MEDS: GLIMEPIRIDE 4 MG TABLET PO SCH (09:18)
[2018-11-26] MEDS: SPIRONOLACTONE 25 MG TABLET PO SCH (09:18)
[2018-11-26] MEDS: FUROSEMIDE 40 MG TABLET PO SCH (09:18)
[2018-11-26] MEDS: AMIODARONE 200 MG TABLET PO SCH (09:18)
[2018-11-26] MEDS: POTASSIUM CHLORIDE 20 MEQ TABLET PO SCH (09:18)
[2018-11-26] MEDS: ROSUVASTATIN 10 MG TABLET PO SCH (09:19)
[2018-11-26] MEDS: MAGNESIUM OXIDE 400 MG TABLET PO SCH (09:19)
[2018-11-26] MEDS: APIXABAN 5 MG TABLET PO SCH (09:19)
[2018-11-26] MEDS: PANTOPRAZOLE 40 MG TABLET PO SCH (09:19)
[2018-11-26] MEDS: SACUBITRIL/VALSARTAN 49-51 MG TABLET PO SCH (09:19)
[2018-11-26] MEDS: MELOXICAM 7.5 MG TABLET PO SCH (09:19)
[2018-11-26] MEDS: INSULIN NPH/REGULAR 70/30 100 UNIT/ML SUBCUT SCH ×2 (09:22→13:17)
[2018-11-26] MEDS: NF- (Mirabegron [Myrbetriq] 50 MG) PO SCH (09:28)
[2018-11-26] MEDS ORDERED: carvediloL 6.25 MG TABLET PO SCH (09:30)
[2018-11-26 11:51] VITALS: BP 170/72
[2018-11-26] MEDS ORDERED: AMIODARONE 200 MG TABLET PO SCH (21:00)
[2018-12-04] MEDS ORDERED: AMIODARONE 200 MG TABLET PO SCH (09:00)
== END 2018-11-26 14:45 | DRG 309 ==
LOC: EDUNIT# → EDBD → N.EDINP 18:08 → N.ED 18:08 → N.3E 11-21 02:49 → N.TELES 11-22 18:08
PROVIDERS: ADMIT Family Medicine; ATTEND Family Medicine

== ENCOUNTER 2021-09-02 16:21 | Inpatient (IN) ==
[2021-09-02 18:30] LABS: Basophils % 0.6 % (0.0-0.8); Eosinophils # 0.1 10*3/uL (0.0-0.87); Hematocrit 34.5 VOL% (35.7-47.0); Hemoglobin 9.6 GM/DL (12.0-16.0); Immature Granulocytes % 0.4 %; Immature Granulocytes Absolute 0.02 #; Lymphocytes # 0.9 10*3/uL (1.4-4.0); Lymphocytes % 18.3 % (21.3-54.2); Mean Corpuscular HGB Conc 27.8 GM/DL (32-36); Mean Corpuscular Volume 103.6 FL (87-102); Mean Platelet Volume 10.3 FL (9.6-12.0); Monocytes # 0.4 10*3/uL (0.11-0.8); Monocytes % 7.9 % (1.7-12.7); Neutrophils % 70.8 % (38.7-73.9); Platelet Count 187 T/CUMM (130-400); Red Blood Count 3.33 MC/CUMM (3.8-5.5); Red Cell Distribution Width 14.9 % (9.3-17.3); White Blood Count 5.1 T/CUMM (4-12)
[2021-09-02 18:46] LABS: Alanine Aminotransferase 19 U/L (13-56); Albumin 3.1 G/DL (3.4-5.0); Alkaline Phosphatase 65 U/L (45-117); Aspartate Amino Transferase 13 U/L (0-37); Bilirubin,Total < 0.39 MG/DL (0.20-1.00); Blood Urea Nitrogen 30 MG/DL (7-18); Carbon Dioxide 40 MMOL/L (21-32); Chloride 106 MMOL/L (98-107); Glucose 197 MG/DL (74-106); Potassium 5.4 MMOL/L (3.5-5.1); Sodium 143 MMOL/L (136-145); Total Protein 6.7 G/DL (6.4-8.2)
[2021-09-02 18:59] LABS: Bacteria,Urine Occasional /HPF (Few); Hyaline Casts,Urine 1 /LPF (0-3); Mucus,Urine Occasional /LPF (Occasional); RBC,Urine <1 /HPF (0-4); Squamous Epithelial Cell,Urine Occasional /HPF (0-10)
[2021-09-02 19:01] LABS: Bilirubin,Urine Negative (Negative); Blood, Urine Negative (Negative); Glucose,Urine (UA) Negative (Negative); Ketones,Urine Negative (Negative); Nitrite,Urine Positive (Negative); Protein,Urine Negative (Negative); Urine Appearance Clear (Clear); Urine Color Yellow (Yellow); Urine Specific Gravity > 1.030 (1.001-1.035); Urine Urobilinogen 0.2 eU/dL (<2.0)
[2021-09-02] MEDS ORDERED: MEROPENEM 500 MG in SODIUM CHLORIDE 0.9% 100 ML IV ONE (20:07)
[2021-09-02] MEDS ORDERED: FUROSEMIDE 40 MG/4 ML VIAL IV STA (20:07)
[2021-09-02] MEDS ORDERED: ACETAMINOPHEN 325 MG TABLET PO PRN (20:18)
[2021-09-02] MEDS ORDERED: ONDANSETRON 4 MG/2 ML VIAL IV PRN (20:18)
[2021-09-02] MEDS ORDERED: DEXTROSE 50% 25 GM/50 ML VIAL IV PRN (20:18)
[2021-09-02] MEDS ORDERED: NICOTINE 21 MG/24 HR PATCH TRANSDERM PRN (20:18)
[2021-09-02] MEDS ORDERED: diphenhydrAMINE CAP 25 MG CAPSULE PO PRN (20:18)
[2021-09-02] MEDS ORDERED: MORPHINE 2 MG/1 ML SYRINGE IV PRN (20:18)
[2021-09-02] MEDS ORDERED: ZALEPLON 5 MG CAPSULE PO PRN (20:18)
[2021-09-02] MEDS ORDERED: hydrALAZINE 20 MG/1 ML VIAL IV PRN (20:18)
[2021-09-02] MEDS ORDERED: guaiFENesin/DM ER 600-30 MG TABLET PO PRN (20:18)
[2021-09-02] MEDS ORDERED: GLUCAGON 1 MG VIAL IM PRN ×2 (20:18)
[2021-09-02] MEDS ORDERED: DEXTROSE 10% 250 ML BAG IV PRN (20:29)
[2021-09-02] MEDS: INSULIN LISPRO 100 UNIT/ML SUBCUT SCH (21:32)
[2021-09-02] MEDS: AZITHROMYCIN INJ 500 MG in SODIUM CHLORIDE 0.9% 250 ML IV SCH (23:12)
[2021-09-03] MEDS: ALBUTEROL/IPRATROPIUM 3 ML NEB RESP TX SCH ×4 (00:20→19:40)
[2021-09-03] MEDS: cefTRIAXone 1,000 MG in SODIUM CHLORIDE 0.9% 100 ML IV SCH (01:01)
[2021-09-03 05:56] LABS: Calcium 9.2 MG/DL (8.5-10.1)
[2021-09-03 05:57] LABS: Osmolality,Calculated 291.3 MOS/KG (273-304); Potassium 4.9 MMOL/L (3.5-5.1)
[2021-09-03 06:16] LABS: Basophils % 0.4 % (0.0-0.8); Eosinophils # 0.1 10*3/uL (0.0-0.87); Eosinophils % 2.6 % (0.00-10.9); Hematocrit 33.5 VOL% (35.7-47.0); Hemoglobin 9.5 GM/DL (12.0-16.0); Immature Granulocytes % 0.4 %; Immature Granulocytes Absolute 0.02 #; Lymphocytes # 0.8 10*3/uL (1.4-4.0); Lymphocytes % 18.2 % (21.3-54.2); Mean Corpuscular HGB Conc 28.4 GM/DL (32-36); Mean Corpuscular Volume 102.1 FL (87-102); Mean Platelet Volume 11.3 FL (9.6-12.0); Monocytes # 0.5 10*3/uL (0.11-0.8); Monocytes % 10.3 % (1.7-12.7); Neutrophils % 68.1 % (38.7-73.9); Platelet Count 158 T/CUMM (130-400); Red Blood Count 3.28 MC/CUMM (3.8-5.5); Red Cell Distribution Width 15.1 % (9.3-17.3); White Blood Count 4.6 T/CUMM (4-12)
[2021-09-03] MEDS: BISACODYL 5 MG TABLET PO SCH (08:46)
[2021-09-03] MEDS: carvediloL 12.5 MG TABLET PO SCH ×2 (08:46→16:47)
[2021-09-03] MEDS: GABAPENTIN 100 MG CAPSULE PO SCH ×3 (08:46→21:23)
[2021-09-03] MEDS: ASPIRIN EC 81 MG TABLET PO SCH (08:46)
[2021-09-03] MEDS: INSULIN LISPRO 100 UNIT/ML SUBCUT SCH ×4 (08:46→21:24)
[2021-09-03] MEDS: FUROSEMIDE 40 MG/4 ML VIAL IV SCH ×2 (08:46→16:46)
[2021-09-03] MEDS: PANTOPRAZOLE 40 MG TABLET PO SCH (08:46)
[2021-09-03] MEDS: APIXABAN 5 MG TABLET PO SCH ×2 (08:47→21:23)
[2021-09-03] MEDS: AZITHROMYCIN INJ 500 MG in SODIUM CHLORIDE 0.9% 250 ML IV SCH (21:24)
[2021-09-04] MEDS: ALBUTEROL/IPRATROPIUM 3 ML NEB RESP TX SCH ×4 (00:25→19:25)
[2021-09-04] MEDS: cefTRIAXone 1,000 MG in SODIUM CHLORIDE 0.9% 100 ML IV SCH (01:49)
[2021-09-04 06:32] LABS: Potassium 3.9 MMOL/L (3.5-5.1)
[2021-09-04 06:33] LABS: Basophils % 0.5 % (0.0-0.8); Eosinophils # 0.1 10*3/uL (0.0-0.87); Eosinophils % 3.1 % (0.00-10.9); Hemoglobin 9.3 GM/DL (12.0-16.0); Immature Granulocytes % 0.5 %; Immature Granulocytes Absolute 0.02 #; Lymphocytes # 0.9 10*3/uL (1.4-4.0); Lymphocytes % 22.8 % (21.3-54.2); Mean Corpuscular HGB Conc 28.9 GM/DL (32-36); Mean Corpuscular Volume 98.5 FL (87-102); Mean Platelet Volume 10.5 FL (9.6-12.0); Monocytes # 0.4 10*3/uL (0.11-0.8); Neutrophils % 64.1 % (38.7-73.9); Platelet Count 166 T/CUMM (130-400); Red Blood Count 3.27 MC/CUMM (3.8-5.5); Red Cell Distribution Width 15.2 % (9.3-17.3); White Blood Count 4.1 T/CUMM (4-12)
[2021-09-04 06:35] LABS: Hematocrit 32.2 VOL% (35.7-47.0)
[2021-09-04 06:40] LABS: Osmolality,Calculated 284.5 MOS/KG (273-304)
[2021-09-04] MEDS: LEVOTHYROXINE 100 MCG TABLET PO SCH (07:11)
[2021-09-04] MEDS: INSULIN LISPRO 100 UNIT/ML SUBCUT SCH ×4 (08:46→22:14)
[2021-09-04] MEDS: FUROSEMIDE 40 MG/4 ML VIAL IV SCH ×2 (08:46→15:39)
[2021-09-04] MEDS: carvediloL 12.5 MG TABLET PO SCH ×2 (08:47→17:10)
[2021-09-04] MEDS: BISACODYL 5 MG TABLET PO SCH (08:47)
[2021-09-04] MEDS: SPIRONOLACTONE 25 MG TABLET PO SCH (08:48)
[2021-09-04] MEDS: GABAPENTIN 100 MG CAPSULE PO SCH ×3 (08:48→22:13)
[2021-09-04] MEDS: APIXABAN 5 MG TABLET PO SCH ×2 (08:49→22:13)
[2021-09-04] MEDS: ASPIRIN EC 81 MG TABLET PO SCH (08:49)
[2021-09-04] MEDS: PANTOPRAZOLE 40 MG TABLET PO SCH (08:49)
[2021-09-04] MEDS: AMIODARONE 200 MG TABLET PO SCH (08:49)
[2021-09-04] MEDS: SACUBITRIL/VALSARTAN 49-51 MG TABLET PO SCH ×2 (08:50→23:30)
[2021-09-04] MEDS ORDERED: DAPAGLIFLOZIN 10 MG TABLET PO SCH (09:00)
[2021-09-04] MEDS ORDERED: ROSUVASTATIN 10 MG TABLET PO SCH (21:00)
[2021-09-04] MEDS: DESITIN 4OZ/NYSTATIN 15 GRAM MIXTURE PASTE TOP SCH (22:15)
[2021-09-04] MEDS: AZITHROMYCIN INJ 500 MG in SODIUM CHLORIDE 0.9% 250 ML IV SCH (22:15)
[2021-09-05] MEDS: ALBUTEROL/IPRATROPIUM 3 ML NEB RESP TX SCH ×3 (00:28→12:55)
[2021-09-05] MEDS: cefTRIAXone 1,000 MG in SODIUM CHLORIDE 0.9% 100 ML IV SCH (05:40)
[2021-09-05 06:26] LABS: Calcium 8.9 MG/DL (8.5-10.1); Osmolality,Calculated 285.3 MOS/KG (273-304); Potassium 3.7 MMOL/L (3.5-5.1)
[2021-09-05] MEDS: LEVOTHYROXINE 100 MCG TABLET PO SCH (06:38)
[2021-09-05 06:52] LABS: Basophils % 0.7 % (0.0-0.8); Eosinophils # 0.1 10*3/uL (0.0-0.87); Eosinophils % 2.9 % (0.00-10.9); Hemoglobin 9.9 GM/DL (12.0-16.0); Immature Granulocytes % 0.5 %; Immature Granulocytes Absolute 0.02 #; Lymphocytes % 25.1 % (21.3-54.2); Mean Corpuscular HGB Conc 29.3 GM/DL (32-36); Mean Corpuscular Volume 97.7 FL (87-102); Mean Platelet Volume 10.4 FL (9.6-12.0); Monocytes # 0.5 10*3/uL (0.11-0.8); Monocytes % 11.8 % (1.7-12.7); Platelet Count 171 T/CUMM (130-400); Red Blood Count 3.46 MC/CUMM (3.8-5.5); Red Cell Distribution Width 15.4 % (9.3-17.3); White Blood Count 4.1 T/CUMM (4-12)
[2021-09-05 06:53] LABS: Hematocrit 33.8 VOL% (35.7-47.0)
[2021-09-05] MEDS: INSULIN LISPRO 100 UNIT/ML SUBCUT SCH ×3 (07:21→16:31)
[2021-09-05] MEDS: SPIRONOLACTONE 25 MG TABLET PO SCH (09:37)
[2021-09-05] MEDS: SACUBITRIL/VALSARTAN 49-51 MG TABLET PO SCH (09:37)
[2021-09-05] MEDS: carvediloL 12.5 MG TABLET PO SCH ×2 (09:37→17:22)
[2021-09-05] MEDS: AMIODARONE 200 MG TABLET PO SCH (09:37)
[2021-09-05] MEDS: PANTOPRAZOLE 40 MG TABLET PO SCH (09:38)
[2021-09-05] MEDS: ASPIRIN EC 81 MG TABLET PO SCH (09:38)
[2021-09-05] MEDS: APIXABAN 5 MG TABLET PO SCH (09:38)
[2021-09-05] MEDS: GABAPENTIN 100 MG CAPSULE PO SCH ×2 (09:38→15:50)
[2021-09-05] MEDS: FUROSEMIDE 40 MG/4 ML VIAL IV SCH ×2 (09:40→15:28)
[2021-09-05 11:22] VITALS: BP 126/75
[2021-09-05] MEDS: DESITIN 4OZ/NYSTATIN 15 GRAM MIXTURE PASTE TOP SCH (11:22)
[2021-09-05] MEDS: BISACODYL 5 MG TABLET PO SCH (11:22)
[2021-09-05] MEDS ORDERED: CEFUROXIME 500 MG TABLET PO SCH (17:00)
== END 2021-09-05 17:05 | disposition home or self-care (01) | DRG 193 ==
LOC: EDBD → EDUNIT# → N.ED 16:21 → N.EDINP 20:18 → N.3E 21:38
PROVIDERS: ADMIT Family Medicine; ATTEND Family Medicine

== ENCOUNTER 2022-01-17 11:21 | Observation (INO) ==
[2022-01-17 12:14] LABS: Basophils % 0.4 % (0.0-0.8); Eosinophils # 0.1 10*3/uL (0.0-0.87); Eosinophils % 1.4 % (0.00-10.9); Hematocrit 35.5 VOL% (35.7-47.0); Hemoglobin 10.6 GM/DL (12.0-16.0); Immature Granulocytes % 0.6 %; Immature Granulocytes Absolute 0.03 #; Lymphocytes # 1.4 10*3/uL (1.4-4.0); Lymphocytes % 27.7 % (21.3-54.2); Mean Corpuscular HGB Conc 29.9 GM/DL (32-36); Mean Corpuscular Volume 96.7 FL (87-102); Mean Platelet Volume 10.5 FL (9.6-12.0); Monocytes # 0.4 10*3/uL (0.11-0.8); Monocytes % 7.9 % (1.7-12.7); Platelet Count 207 T/CUMM (130-400); Red Blood Count 3.67 MC/CUMM (3.8-5.5); Red Cell Distribution Width 14.8 % (9.3-17.3); White Blood Count 5.2 T/CUMM (4-12)
[2022-01-17 12:25] LABS: INR 1.1; PT Patient Result 11.6 SECS (10.1-12.1); Partial Thromboplastin Time 29.3 SECS (23.7-32.9)
[2022-01-17 12:29] LABS: Albumin 3.4 G/DL (3.4-5.0); Bilirubin,Total 0.4 MG/DL (0.20-1.00); Potassium 4.4 MMOL/L (3.5-5.1); Total Protein 7.4 G/DL (6.4-8.2)
[2022-01-17 13:49] LABS: Bilirubin,Urine Negative (Negative); Blood, Urine Negative (Negative); Glucose,Urine (UA) Negative (Negative); Ketones,Urine Negative (Negative); Nitrite,Urine Negative (Negative); Protein,Urine Negative (Negative); Urine Appearance Clear (Clear); Urine Color Yellow (Yellow)
[2022-01-17 13:57] LABS: Hyaline Casts,Urine 1 /LPF (0-3); Mucus,Urine Occasional /LPF (Occasional); RBC,Urine 1 /HPF (0-4); Squamous Epithelial Cell,Urine Occasional /HPF (0-10)
[2022-01-17] MEDS ORDERED: GLUCAGON 1 MG VIAL IM PRN (16:35)
[2022-01-17] MEDS ORDERED: ONDANSETRON 4 MG/2 ML VIAL IV PRN (16:35)
[2022-01-17] MEDS ORDERED: DEXTROSE 10% 250 ML BAG IV PRN (16:38)
[2022-01-17] MEDS: INSULIN REGULAR 100 UNIT/ML SUBCUT SCH (17:12)
[2022-01-17] MEDS: DOCUSATE SODIUM 100 MG CAPSULE PO SCH (20:33)
[2022-01-18] MEDS: INSULIN REGULAR 100 UNIT/ML SUBCUT SCH ×4 (03:50→19:00)
[2022-01-18] MEDS: PANTOPRAZOLE 40 MG TABLET PO SCH (08:38)
[2022-01-18] MEDS: DOCUSATE SODIUM 100 MG CAPSULE PO SCH ×2 (09:17→22:55)
[2022-01-18] MEDS: ACETAMINOPHEN 325 MG TABLET PO PRN (13:28)
[2022-01-18] MEDS ORDERED: ALBUTEROL/IPRATROPIUM 3 ML NEB RESP TX PRN (14:03)
[2022-01-18] MEDS: AMIODARONE 200 MG TABLET PO SCH (14:48)
[2022-01-18] MEDS: APIXABAN 5 MG TABLET PO SCH ×2 (14:48→21:30)
[2022-01-18] MEDS ORDERED: cefTRIAXone 1,000 MG in SODIUM CHLORIDE 0.9% 100 ML IV SCH (15:00)
[2022-01-18] MEDS: carvediloL 12.5 MG TABLET PO SCH (21:30)
[2022-01-19] MEDS: INSULIN REGULAR 100 UNIT/ML SUBCUT SCH ×2 (03:08→06:24)
[2022-01-19 06:04] LABS: Alanine Aminotransferase 14 U/L (13-56); Albumin 2.8 G/DL (3.4-5.0); Alkaline Phosphatase 46 U/L (45-117); Aspartate Amino Transferase 13 U/L (0-37); Bilirubin,Total < 0.39 MG/DL (0.20-1.00); Blood Urea Nitrogen 19 MG/DL (7-18); Calcium 8.7 MG/DL (8.5-10.1); Carbon Dioxide 33 MMOL/L (21-32); Chloride 106 MMOL/L (98-107); Glucose 124 MG/DL (74-106); Osmolality,Calculated 285.1 MOS/KG (273-304); Potassium 4.6 MMOL/L (3.5-5.1); Sodium 142 MMOL/L (136-145); Total Protein 6.7 G/DL (6.4-8.2)
[2022-01-19 06:06] LABS: Basophils % 0.5 % (0.0-0.8); Eosinophils # 0.1 10*3/uL (0.0-0.87); Eosinophils % 2.2 % (0.00-10.9); Hematocrit 30.7 VOL% (35.7-47.0); Immature Granulocytes % 0.5 %; Immature Granulocytes Absolute 0.02 #; Lymphocytes # 1.3 10*3/uL (1.4-4.0); Lymphocytes % 32.2 % (21.3-54.2); Mean Corpuscular HGB Conc 29.3 GM/DL (32-36); Mean Corpuscular Volume 98.7 FL (87-102); Mean Platelet Volume 10.6 FL (9.6-12.0); Monocytes # 0.4 10*3/uL (0.11-0.8); Monocytes % 10.1 % (1.7-12.7); Neutrophils % 54.5 % (38.7-73.9); Platelet Count 186 T/CUMM (130-400); Red Blood Count 3.11 MC/CUMM (3.8-5.5); Red Cell Distribution Width 14.7 % (9.3-17.3)
[2022-01-19 08:05] VITALS: BP 122/51
[2022-01-19] MEDS: APIXABAN 5 MG TABLET PO SCH (08:16)
[2022-01-19] MEDS: PANTOPRAZOLE 40 MG TABLET PO SCH (08:16)
[2022-01-19] MEDS: ACETAMINOPHEN 325 MG TABLET PO PRN (08:17)
[2022-01-19] MEDS: carvediloL 12.5 MG TABLET PO SCH (08:17)
[2022-01-19] MEDS: DOCUSATE SODIUM 100 MG CAPSULE PO SCH (08:18)
[2022-01-19] MEDS: AMIODARONE 200 MG TABLET PO SCH (08:18)
[2022-01-19] MEDS ORDERED: ASPIRIN EC 81 MG TABLET PO SCH (09:00)
[2022-01-19] MEDS ORDERED: INFLUENZA VIRUS VACCINE 0.5 ML SYRINGE IM ONE (10:50)
== END 2022-01-19 13:22 | disposition home health service (06) ==
LOC: SUPCPDRO → N.2W 11:21 → N.ED 11:21 → N.2W 15:15
PROVIDERS: ADMIT Family Medicine; ATTEND Family Medicine